=== PATIENT | female | born 1930 | race Caucasian/White ===

== ENCOUNTER 2016-12-22 02:38 | Emergency (ER) | payer MEDICARE, OTHER ==
[~2016-12-22] VITALS: Ht 167.6 cm; Wt 83.6 kg
[~2016-12-22 02:38] MED LIST: ACET65TA; BABY81CH; CEFT500T; INSULIN; LASI40TA; POTA10CA2; ROBITUSSIN; TENO50TA; VASO20TA; ZITH250T
[2016-12-22] MEDS ORDERED: XARE20TA PO (02:55)
[2016-12-22] MEDS ORDERED: GABA-282 PO (02:55)
[2016-12-22] MEDS ORDERED: NEXI40CA PO (02:55)
[2016-12-22] MEDS ORDERED: ATOR80TA59 PO (02:55)
[2016-12-22] MEDS ORDERED: SPIR50TA2 PO (02:55)
[2016-12-22 04:40] LABS: BASO % 0.4 % (0.0-1.0); EOS # 0.1 K/mm3 (0.0-0.50); EOS % 1.4 % (0.0-3.0); LARGE UNSTAINED CELL # 0.1 K/mm3 (0.0-0.4); LYMPH # 0.8 K/mm3 (1.5-4.5); LYMPH % 12.8 % (24.0-44.0); MEAN CORPUSCULAR HGB CONC 34.5 g/dl (32.0-36.5); MEAN CORPUSCULAR VOLUME 95.7 fl (80.0-96.0); MONO # 0.3 K/mm3 (0.0-0.8); NEUTROPHILS # 5.1 K/mm3 (1.8-7.7); NEUTROPHILS % 79.5 % (36.0-66.0); PLATELET COUNT, AUTOMATED 191 k/mm3 (150-450); WHITE BLOOD COUNT 6.4 K/mm3 (4.0-10.0)
[2016-12-22] MEDS ORDERED: NORCO, ANEXSIA 5/325MG TABLET (HYDROcodone/ACETAMINOPHEN) PO ONE (04:45)
[2016-12-22 05:03] LABS: ALBUMIN 3.4 GM/DL (3.2-5.2); ALBUMIN/GLOBULIN RATIO 1.21 (1.00-1.93); BILIRUBIN,DIRECT 0.2 MG/DL (0.0-0.2); BILIRUBIN,TOTAL 0.5 MG/DL (0.2-1.0); CALCIUM LEVEL 9.1 MG/DL (8.8-10.2); CREATININE FOR GFR 1.34 MG/DL (0.55-1.02); GLOMERULAR FILTRATION RATE 39.8 (>32); POTASSIUM SERUM 4.4 MEQ/L (3.5-5.1); TOTAL PROTEIN 6.2 GM/DL (6.4-8.2)
[2016-12-22] MEDS ORDERED: NS 500 ML IV ONE (05:15)
[2016-12-22 06:21] VITALS: BP 135/62
== END 2016-12-22 07:21 | disposition home or self-care (01) ==
LOC: M ED 02:38 → EDBD 02:38 → M ED 07:21
DX: E86.0 Dehydration (principal); E11.9 Type 2 diabetes mellitus without complications; I10 Essential (primary) hypertension; E78.5 Hyperlipidemia, unspecified; K21.9 Gastro-esophageal reflux disease without esophagitis; I89.0 Lymphedema, not elsewhere classified; Z79.4 Long term (current) use of insulin; Z79.899 Other long term (current) drug therapy; Z91.89 Other specified personal risk factors, not elsewhere classified

== ENCOUNTER 2018-05-01 16:23 | Inpatient (IN) | payer MEDICARE, OTHER ==
[~2018-05-01] VITALS: Ht 165.1 cm; Wt 77.4 kg
[~2018-05-01 16:23] MED LIST changes: +ATOR80TA59 PO; +GABA-843 PO; +NEXI40CA PO; +SPIR50TA4 PO; +XARE20TA PO
[2018-05-01] MEDS ORDERED: NS 500 ML IV ONE ×2 (17:15→18:30)
[2018-05-01 17:35] LABS: BASO % 0.5 % (0.0-1.0); EOS # 0.3 10^3/uL (0.0-0.50); EOS % 3.5 % (0.0-3.0); HEMATOCRIT 32.9 % (36.0-47.0); HEMOGLOBIN 10.5 g/dl (12.0-15.5); LYMPH # 1.3 10^3/uL (1.5-4.5); LYMPH % 17.8 % (24.0-44.0); MEAN CORPUSCULAR HEMOGLOBIN 28.8 pg (27.0-33.0); MEAN CORPUSCULAR HGB CONC 31.9 g/dl (32.0-36.5); MEAN CORPUSCULAR VOLUME 90.1 fl (80.0-96.0); MONO # 0.5 10^3/uL (0.0-0.8); MONO % 6.8 % (0.0-5.0); NEUTROPHILS # 5.2 10^3/uL (1.8-7.7); PLATELET COUNT, AUTOMATED 250 10^3/uL (150-450); RED BLOOD COUNT 3.65 10^6/uL (4.00-5.40); WHITE BLOOD COUNT 7.4 10^3/uL (4.0-10.0)
--- NOTE | 2018-05-01 17:41 | ECGEPIP ---
Stationary ECG Study [facility] - ED Test Date: 2018-05-01 Pat Name: DESIREE PEARSON Department: Room: - Gender: F Simulation Developer: JMyles : 1930 Requested By: SVETA AGARWAL Order Number: [id number] Reading MD: Aimee Otero Measurements Intervals Vance Rate: 59 P: 15 [place]: 202 QRS: 44 QRSD: 90 T: 4 QT: 420 QTc: 419 Interpretive Statements SINUS BRADYCARDIA NO PRIOR FOR COMPARISON Electronically Signed On 05-01-2018 17:40:37 EST by Aimee Otero
[2018-05-01 18:06] LABS: ALBUMIN 3.4 GM/DL (3.2-5.2); ALT/SGPT 24 U/L (12-78); BILIRUBIN,DIRECT 0.2 MG/DL (0.0-0.2); BILIRUBIN,TOTAL 0.5 MG/DL (0.2-1.0); BLOOD UREA NITROGEN 61 MG/DL (7-18); CARBON DIOXIDE LEVEL 24 MEQ/L (21-32); CHLORIDE LEVEL 104 MEQ/L (98-107); CPK CREATINE PHOSPHOKINASE 58 U/L (26-192); GLOMERULAR FILTRATION RATE 32.3 (>32); GLUCOSE, FASTING 95 MG/DL (70-100); MB/CK RELATIVE INDEX 3.45 (< OR =4); POTASSIUM SERUM 5.1 MEQ/L (3.5-5.1); SODIUM LEVEL 140 MEQ/L (136-145); TOTAL PROTEIN 6.5 GM/DL (6.4-8.2); TROPONIN I < 0.02 NG/ML (< 0.10)
[2018-05-01 19:02] LABS: FREE THYROXINE INDEX 4.1 % (1.3-4.8); MAGNESIUM LEVEL 2.2 MG/DL (1.8-2.4); T UPTAKE 37 % (30-39); THYROID STIMULATING HORMONE 0.136 uIU/ML (0.358-3.740); THYROXINE (T4) 11.2 UG/DL (4.5-12.0)
[2018-05-01] MEDS ORDERED: ONDANSETRON 4MG/2ML VIAL (J2405) IV PRN (19:30)
[2018-05-01] MEDS ORDERED: LEVO75TA4 PO (19:34)
[2018-05-01] MEDS ORDERED: ATEN50TA2 PO (19:34)
[2018-05-01] MEDS ORDERED: FURO40TA2 PO (19:34)
[2018-05-01] MEDS ORDERED: ENAL5TAB PO (19:40)
[2018-05-01] MEDS ORDERED: KLOR10TA76 PO (19:43)
--- NOTE | 2018-05-01 20:14 | REPVR ---
EXAM: CT Head Without Contrast EXAM DATE/TIME: 05/01/2018 7:49 PM CLINICAL HISTORY: 88 years old, female; Signs and symptoms; Altered mental status/memory loss; Additional info: Presyncope TECHNIQUE: Axial computed tomography images of the head/brain without contrast. All CT scans at this facility use at least one of these dose optimization techniques: automated exposure control; mA and/or kV adjustment per patient size (includes targeted exams where dose is matched to clinical indication); or iterative reconstruction. COMPARISON: No relevant prior studies available. FINDINGS: Brain: There is parenchymal volume loss. White matter changes are demonstrated in the subcortical, centrum semiovale and periventricular white matter consistent with small vessel white matter angiopathic gliosis. Chronic lacunar infarcts left periventricular white matter. Ventricles: The degree of ventricular dilatation is normal for age. No pathologic enlargement demonstrated. Bones/joints: Normal. No acute fracture. Sinuses: Mild inflammatory changes left maxillary sinus. Mastoid air cells: Normal as visualized. No mastoid effusion. Soft tissues: Normal. IMPRESSION: There is parenchymal volume loss. White matter changes are demonstrated in the subcortical, centrum semiovale and periventricular white matter consistent with small vessel white matter angiopathic gliosis. Electronically signed by: Maurizio Ji On 05/01/2018 20:14:02 PM
--- NOTE | 2018-05-01 20:23 | REP ---
Chest x-ray: Two views. History: Dizziness. Comparison chest x-ray: August 06, 2011. Findings: The lungs are well inflated and free of infiltrate. Pleural angles are sharp. Heart is mildly prominent. There is a hiatal hernia behind the heart. Pulmonary vasculature is not increased. EKG electrodes are seen. 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 Impression: Mildly prominent heart. Hiatal hernia. No acute disease. Electronically Signed by Adam Nj MD 05/01/2018 08:15 P
[2018-05-01 21:40] VITALS: BP 128/69
--- NOTE | 2018-05-01 22:34 | HPEPDOC ---
[facility] Medical History & Physical Date of Admission May 01, 2018 Other Provider Dictating/admitting Sharon Collado M.D. Attending Physician: LORENA DOUGLAS MD History and Physical CHIEF COMPLAINT: Presyncope HISTORY OF PRESENT ILLNESS: Patient is an 88-year-old woman. She has medical history significant for coronary artery disease, congestive heart failure, diabetes, hypertension, hypercholesterolemia and A. fib on Xarelto. According to her, she was in her usual state of health until about sometime in the afternoon when she was preparing had dinner she felt dizzy and had to grab onto furniture, sat down hoping the dizziness will chloe but 10 minutes later she still had the symptom of dizziness and subsequently activated EMS. She denied any loss of consciousness but she did refer, palpitations. No accompanying shortness of breath. She denies any fever, chills, chest pains. No recent sick contacts. She denied any prior visual changes or headaches. No change in her urinary or bowel habits. She was evaluated in the emergency room, non-orthostatic and giving 1 L IV fluid bolus. Her blood pressure consistently staying in the 120s systolic and she still complained of occasional dizziness. Hospitalist was called in for further evaluation and to have patient admitted. Patient did report some improvement. PAST MEDICAL HISTORY: Per HPI PAST SURGICAL HISTORY: 1. Right total hip replacement. SOCIAL HISTORY: Denies alcohol use. Denies illicit drugs, denies smoking. FAMILY HISTORY: Significant ischemic heart disease in the family. ALLERGIES: Please see below. REVIEW OF SYSTEMS: 12 point review of systems negative other than that described in the body of HPI. HOME MEDICATIONS: Please see below. PHYSICAL EXAMINATION: VITAL SIGNS: Temperature 97, pulse 18, respiratory rate 63, blood pressure 124/58, pulse oximetry 94% on room air. GENERAL APPEARANCE: Elderly woman, lying calmly in bed, not in any apparent distress. She is not pale, anicteric and afebrile HEENT: Atraumatic. Neck: Supple. LUNGS: Clear to auscultation bilaterally. CARDIOVASCULAR: S1 and 2 heard, no murmurs, rubs or gallops. ABDOMEN: Obese, soft, not tender, not distended. Bowel sounds normoactive. MUSCULOSKELETAL: Apparently within normal limits. EXTREMITIES: Chronic pedal edema (lymphedema), 2+ bilateral pedal pulses noted. NEUROLOGICAL: Awake, alert, oriented 3. PSYCHIATRIC: Normal affect LABORATORY DATA: See below. IMAGING: CT head without contrast There is parenchymal volume loss. White matter changes are demonstrated in the subcortical, centrum semiovale and periventricular white matter consistent with small vessel white matter angiopathic gliosis. Chest x-ray: No acute disease, mild cardiac enlargement. MICROBIOLOGY: Please see below. ASSESSMENT: Patient is an 88-year-old woman with medical history as enumerated above, came in complaining of presyncopal episode. Exam is negative for orthostasis EKG reads normal sinus rhythm. Patient reports improvement in her symptoms. DIAGNOSIS: Presyncope . PLAN: 1. I will admit patient to the PCU under care of Dr. Douglas 2. We'll order CT head without contrast. 3. We will order echocardiogram for tomorrow. 4. Will hold Lasix for now. Please reevaluate tomorrow and restart Lasix as indicated. 5. A. fib: Will resume atenolol but hold if heart rate is less than 60 beats per minute and I will continue patient on Xarelto 20 mg daily. 6. Diabetes. Patient's serum glucose readings 90. We'll continue with fingersticks before meals and at bedtime no insulin coverage at this time. However, soon as she resumes by mouth intake. Patient can start sliding scale. Continue with consistent carb with no added salt diet. 7. Patient reports being out of atenolol for about a week 8. GI prophylaxis. Pantoprazole 9. DVT prophylaxis. Continue Xarelto 10. Further management will be per patient's clinical course. Vital Signs Vital Signs Date Time Temp Pulse Resp B/P (MAP) Pulse Ox O2 Delivery O2 Flow Rate FiO2 05/01/18 21:40 98.7 66 16 128/69 (88) 95 Room Air Laboratory Data Labs 24H Laboratory Tests 2 05/01/18 17:25: Immature Granulocyte % (Auto) 0.4, White Blood Count 7.4, Red Blood Count 3.65L, Hemoglobin 10.5L, Hematocrit 32.9L, Mean Corpuscular Volume 90.1, Mean Corpuscular Hemoglobin 28.8, Mean Corpuscular Hemoglobin Concent 31.9L, Red Cell Distribution Width 15.9H, Platelet Count 250, Neutrophils (%) (Auto) 71.0H, Lymphocytes (%) (Auto) 17.8L, Monocytes (%) (Auto) 6.8H, Eosinophils (%) (Auto) 3.5H, Basophils (%) (Auto) 0.5, Neutrophils # (Auto) 5.2, Lymphocytes # (Auto) 1.3L, Monocytes # (Auto) 0.5, Eosinophils # (Auto) 0.3, Basophils # (Auto) 0.0, Nucleated Red Blood Cells % (auto) 0.0, Anion Gap 12, Glomerular Filtration Rate 32.3, Calcium Level 9.0, Magnesium Level 2.2, Aspartate Amino Transf (AST/SGOT) 14, Alanine Aminotransferase (ALT/SGPT) 24, Alkaline Phosphatase 110, Total Bilirubin 0.5, Direct Bilirubin 0.2, Total Creatine Kinase 58, Creatine Kinase MB 2.0, Creatine Kinase MB Relative Index 3.45, Troponin I < 0.02, Total Protein 6.5, Albumin 3.4, Albumin/Globulin Ratio 1.10, Thyroid Stimulating Hormone (TSH) 0.136L, Free Thyroxine Index 4.1, Thyroxine (T4) 11.2, Triiodothyronine (T3) Uptake 37 05/01/18 18:17: Lactic Acid Level 0.8 05/01/18 21:21: Urine Random Osmolality 315L 05/01/18 21:22: Urine Color YELLOW, Urine Appearance CLOUDYH, Urine pH 5.0, Urine Specific [place] 1.005, Urine Protein NEGATIVE, Urine Glucose (UA) NEGATIVE, Urine Ketones NEGATIVE, Urine Blood 1+H, Urine Nitrite NEGATIVE, Urine Bilirubin NEGATIVE, Urine Urobilinogen 0.2, Urine Leukocyte Esterase 1+H, Urine WBC (Auto) 14H, Urine RBC (Auto) 8H, Urine Hyaline Casts (Auto) 8, Urine Bacteria (Auto) 3+H, Urine Squamous Epithelial Cells 1, Urine Amorphous Sediment SMALLH, Urine Mucus (Auto) SMALL, Urine Sperm (Auto) CBC/BMP Laboratory Tests 05/01/18 17:25 Red Blood Count 3.65 L, Mean Corpuscular Volume 90.1, Mean Corpuscular Hemoglobin 28.8, Mean Corpuscular Hemoglobin Concent 31.9 L, Red Cell Distribution Width 15.9 H, Neutrophils (%) (Auto) 71.0 H, Lymphocytes (%) (Auto) 17.8 L, Monocytes (%) (Auto) 6.8 H, Eosinophils (%) (Auto) 3.5 H, Basophils (%) (Auto) 0.5, Neutrophils # (Auto) 5.2, Lymphocytes # (Auto) 1.3 L, Monocytes # (Auto) 0.5, Eosinophils # (Auto) 0.3, Basophils # (Auto) 0.0 Microbiology Microbiology 05/01/18 Blood Culture, Received Pending 05/01/18 Blood Culture, Received Pending 05/01/18 Respiratory Virus Panel (PCR) (RINA) - Final, Complete 05/01/18 Urine Culture, Received Pending Home Medications Scheduled Atenolol (Atenolol) 50 Mg Tab, 50 MG PO DAILY Atorvastatin Calcium (Atorvastatin Calcium) 80 Mg Tab, 80 MG PO 2XWK TAKES ON WEDNESDAY AND WEDNESDAY Enalapril Maleate (Enalapril Maleate) 5 Mg Tab, 5 MG PO DAILY Esomeprazole Magnesium Trihydr (Nexium) 40 Mg Cap, 40 MG PO DAILY Furosemide (Furosemide) 40 Mg Tab, 40 MG PO BID TAKES MORNING AND AFTERNOON Gabapentin (Gabapentin) 300 Mg Cap, 600 MG PO QHS Levothyroxine Sodium (Synthroid) 75 Mcg Tab, 75 MCG PO DAILY Potassium Chloride (Klor-Con M10) 10 Meq Tabcr, 20 MEQ PO DAILY Rivaroxaban (Xarelto) 20 Mg Tab, 20 MG PO QHS Spironolactone (Spironolactone) 50 Mg Tab, 50 MG PO DAILY Allergies Coded Allergies: Iodine (Verified Allergy, Unknown, BLISTER & BLISTERS, 07/20/12) Povidone (Verified Allergy, Unknown, BLISTERS & BLISTERS, 07/20/12) SHARON COLLADO MD May 01, 2018 22:34
[2018-05-01] MEDS: RIVAROXABAN 20 MG TAB (XARELTO) PO SCH (22:47)
[2018-05-01] MEDS: PANTOPRAZOLE 40MG INJ (PROTONIX) (C9113) IV SCH (22:47)
[2018-05-01] MEDS: GABAPENTIN 300 MG CAP PO SCH (22:47)
[2018-05-01 23:59] VITALS: BP 119/69
[2018-05-02 04:00] VITALS: BP 118/54
[2018-05-02 05:11] LABS: BASO % 0.6 % (0.0-1.0); EOS # 0.3 10^3/uL (0.0-0.50); EOS % 4.5 % (0.0-3.0); HEMATOCRIT 26.9 % (36.0-47.0); HEMOGLOBIN 8.6 g/dl (12.0-15.5); LYMPH % 30.7 % (24.0-44.0); MEAN CORPUSCULAR HEMOGLOBIN 28.7 pg (27.0-33.0); MEAN CORPUSCULAR VOLUME 89.7 fl (80.0-96.0); MONO # 0.6 10^3/uL (0.0-0.8); MONO % 8.8 % (0.0-5.0); NEUTROPHILS # 3.6 10^3/uL (1.8-7.7); NEUTROPHILS % 55.1 % (36.0-66.0); PLATELET COUNT, AUTOMATED 214 10^3/uL (150-450); WHITE BLOOD COUNT 6.5 10^3/uL (4.0-10.0)
[2018-05-02 05:31] LABS: CREATININE FOR GFR 1.56 MG/DL (0.55-1.30); GLOMERULAR FILTRATION RATE 33.3 (>32); POTASSIUM SERUM 4.2 MEQ/L (3.5-5.1)
[2018-05-02] MEDS: LEVOTHYROXINE 75MCG TABLET (0.075MG) PO SCH (05:37)
[2018-05-02 08:00] VITALS: BP 106/61
[2018-05-02] MEDS: ACETAMINOPHEN TAB 650MG DOSE (2X325MG) PO PRN ×2 (08:52→20:02)
[2018-05-02] MEDS: ATENOLOL 50 MG TAB PO SCH (08:53)
[2018-05-02] MEDS: SPIRONOLACTONE 50 MG TAB PO SCH (08:53)
[2018-05-02] MEDS ORDERED: SLF 3 ML SYR IV PRN (09:00)
[2018-05-02] MEDS ORDERED: FLUBLOK(EGG FREE)(QUAD)INFLUENZA VACC 0.5ML SYRINGE (90682)18YRS&OLDER IM ONE (09:00)
[2018-05-02] MEDS ORDERED: GLUCOSE 4 GM CHEW TABLET PO PRN (12:15)
[2018-05-02] MEDS ORDERED: DEXTROSE 50% 50 ML SYRINGE IV PRN (12:15)
[2018-05-02] MEDS ORDERED: GLUCAGON FOR INJ 1 MG VIAL (J1610) SC PRN (12:15)
[2018-05-02] MEDS: HumaLOG INSULIN (NovoLOG) PER UNIT SC SCH ×3 (12:34→21:00)
--- NOTE | 2018-05-02 12:38 | IPNPDOC ---
Date Seen The patient was seen on 05/02/18. Progress Note SUBJECTIVE: Patient was seen and examined at the bedside. Telemetry was unremarkable. She denies any sob, chest pain, pressure, tightness, dizziness, lightheadedness, nausea, vomiting, abd pain, diaphoresis, PND, orthopnea, headache, blurred vision. Telemetry was sinus with no arrhythmias. No other issues per RN except insulin sliding scale now with coverage. Tmax 100.6, awaiting urine cx . on ceftriaxone day #1. OBJECTIVE: PHYSICAL EXAMINATION: VITAL SIGNS: PLS SEE BELOW, REVIEWED GENERAL APPEARANCE: Elderly woman, lying calmly in bed, not in any apparent distress. She is not pale, anicteric and afebrile HEENT: Atraumatic. Neck: Supple. LUNGS: Clear to auscultation bilaterally. CARDIOVASCULAR: S1 and 2 heard, no murmurs, rubs or gallops. ABDOMEN: Obese, soft, not tender, not distended. Bowel sounds normoactive. MUSCULOSKELETAL: Apparently within normal limits. EXTREMITIES: Chronic pedal edema (lymphedema), 2+ bilateral pedal pulses noted. NEUROLOGICAL: Awake, alert, oriented 3. PSYCHIATRIC: Normal affect LABORATORY DATA: See below. IMAGING: CT head without contrast There is parenchymal volume loss. White matter changes are demonstrated in the subcortical, centrum semiovale and periventricular white matter consistent with small vessel white matter angiopathic gliosis. Chest x-ray: No acute disease, mild cardiac enlargement. MICROBIOLOGY: Please see below. ASSESSMENT AND PLAN: Patient is an 88-year-old woman. She has medical history significant for coronary artery disease, congestive heart failure, diabetes, hypertension, hypercholesterolemia and A. fib on Xarelto. According to her, she was in her usual state of health until about sometime in the afternoon when she was preparing had dinner she felt dizzy and had to grab onto furniture, sat down hoping the dizziness will chloe but 10 minutes later she still had the symptom of dizziness and subsequently activated EMS. She denied any loss of consciousness but she did refer, palpitations. No accompanying shortness of breath. She denies any fever, chills, chest pains. No recent sick contacts. She denied any prior visual changes or headaches. No change in her urinary or bowel habits. She was evaluated in the emergency room, non-orthostatic and giving 1 L IV fluid bolus. Her blood pressure consistently staying in the 120s systolic and she still complained of occasional dizziness. Hospitalist was called in for further evaluation and to have patient admitted. Patient did report some improvement. Presyncope: telemetry monitoring was unremarkable overnight. check orthostatics. echo pending. r/o acute infectious process. awaiting urine cx result. UTI: fever 100.6 . ceftriaxone 1gram iv q24hrs 05/02/18. A. fib: resumed atenolol but hold if heart rate is less than 60 beats per minute , on Xarelto 20 mg daily. Diabetes. We'll continue with fingersticks before meals and at bedtime with insulin coverage at this time. Patient can start sliding scale. Continue with consistent carb with no added salt diet. Hypertension: controlled. CDK3: at baseline creatinine. avoid nephrotoxins, renally dose meds. History of MRSA postop hip replacement infection: contact isolation DVT prophylaxis. Continue Xarelto disposition: awaiting echo and PT clearance. stable for medsurg transfer with tele. Further management will be per patient's clinical course. VS, I&O, 24H, [facility] Vital Signs/I&O Vital Signs Date Time Temp Pulse Resp B/P (MAP) Pulse Ox O2 Delivery O2 Flow Rate FiO2 05/02/18 09:45 99.9 05/02/18 08:53 70 110/60 05/02/18 08:00 20 92 Room Air I&O- Last 24 Hours up to 6 AM 05/02/18 05:59 Intake Total 1250 ml Output Total 0 ml Balance 1250 ml Laboratory Data 24H LABS Laboratory Tests 2 05/01/18 17:25: Immature Granulocyte % (Auto) 0.4, White Blood Count 7.4, Red Blood Count 3.65L, Hemoglobin 10.5L, Hematocrit 32.9L, Mean Corpuscular Volume 90.1, Mean Corpuscular Hemoglobin 28.8, Mean Corpuscular Hemoglobin Concent 31.9L, Red Cell Distribution Width 15.9H, Platelet Count 250, Neutrophils (%) (Auto) 71.0H, Lymphocytes (%) (Auto) 17.8L, Monocytes (%) (Auto) 6.8H, Eosinophils (%) (Auto) 3.5H, Basophils (%) (Auto) 0.5, Neutrophils # (Auto) 5.2, Lymphocytes # (Auto) 1.3L, Monocytes # (Auto) 0.5, Eosinophils # (Auto) 0.3, Basophils # (Auto) 0.0, Nucleated Red Blood Cells % (auto) 0.0, Anion Gap 12, Glomerular Filtration Rate 32.3, Calcium Level 9.0, Magnesium Level 2.2, Aspartate Amino Transf (AST/SGOT) 14, Alanine Aminotransferase (ALT/SGPT) 24, Alkaline Phosphatase 110, Total Bilirubin 0.5, Direct Bilirubin 0.2, Total Creatine Kinase 58, Creatine Kinase MB 2.0, Creatine Kinase MB Relative Index 3.45, Troponin I < 0.02, Total Protein 6.5, Albumin 3.4, Albumin/Globulin Ratio 1.10, Thyroid Stimulating Hormone (TSH) 0.136L, Free Thyroxine Index 4.1, Thyroxine (T4) 11.2, Triiodothyronine (T3) Uptake 37 05/01/18 18:17: Lactic Acid Level 0.8 05/01/18 21:21: Urine Random Osmolality 315L 05/01/18 21:22: Urine Color YELLOW, Urine Appearance CLOUDYH, Urine pH 5.0, Urine Specific [place] 1.005, Urine Protein NEGATIVE, Urine Glucose (UA) NEGATIVE, Urine Ketones NEGATIVE, Urine Blood 1+H, Urine Nitrite NEGATIVE, Urine Bilirubin NE GATIVE, Urine Urobilinogen 0.2, Urine Leukocyte Esterase 1+H, Urine WBC (Auto) 14H, Urine RBC (Auto) 8H, Urine Hyaline Casts (Auto) 8, Urine Bacteria (Auto) 3+H, Urine Squamous Epithelial Cells 1, Urine Amorphous Sediment SMALLH, Urine Mucus (Auto) SMALL, Urine Sperm (Auto) 05/02/18 04:31: Immature Granulocyte % (Auto) 0.3, White Blood Count 6.5, Red Blood Count 3.00L, Hemoglobin 8.6L, Hematocrit 26.9L, Mean Corpuscular Volume 89.7, Mean Corpuscular Hemoglobin 28.7, Mean Corpuscular Hemoglobin Concent 32.0, Red Cell Distribution Width 16.2H, Platelet Count 214, Neutrophils (%) (Auto) 55.1, Lymphocytes (%) (Auto) 30.7, Monocytes (%) (Auto) 8.8H, Eosinophils (%) (Auto) 4.5H, Basophils (%) (Auto) 0.6, Neutrophils # (Auto) 3.6, Lymphocytes # (Auto) 2.0, Monocytes # (Auto) 0.6, Eosinophils # (Auto) 0.3, Basophils # (Auto) 0.0, Nucleated Red Blood Cells % (auto) 0.0, Anion Gap 9, Glomerular Filtration Rate 33.3, Osmolality 327H, Blood Urea Nitrogen 61H, Creatinine 1.56H, Sodium Level 140, Potassium Level 4.2, Chloride Level 107, Carbon Dioxide Level 24, Calcium Level 9.0 05/02/18 11:57: Bedside Glucose (Misc Panel) 138H CBC/BMP Laboratory Tests 05/01/18 17:25 Red Blood Count 3.65 L, Mean Corpuscular Volume 90.1, Mean Corpuscular Hemoglobin 28.8, Mean Corpuscular Hemoglobin Concent 31.9 L, Red Cell Distribution Width 15.9 H, Neutrophils (%) (Auto) 71.0 H, Lymphocytes (%) (Auto) 17.8 L, Monocytes (%) (Auto) 6.8 H, Eosinophils (%) (Auto) 3.5 H, Basophils (%) (Auto) 0.5, Neutrophils # (Auto) 5.2, Lymphocytes # (Auto) 1.3 L, Monocytes # (Auto) 0.5, Eosinophils # (Auto) 0.3, Basophils # (Auto) 0.0 05/02/18 04:31 Red Blood Count 3.00 L, Mean Corpuscular Volume 89.7, Mean Corpuscular Hemoglobin 28.7, Mean Corpuscular Hemoglobin Concent 32.0, Red Cell Distribution Width 16.2 H, Neutrophils (%) (Auto) 55.1, Lymphocytes (%) (Auto) 30.7, Monocytes (%) (Auto) 8.8 H, Eosinophils (%) (Auto) 4.5 H, Basophils (%) (Auto) 0.6, Neutrophils # (Auto) 3.6, Lymphocytes # (Auto) 2.0, Monocytes # (Auto) 0.6, Eosinophils # (Auto) 0.3, Basophils # (Auto) 0.0, Calcium Level 9.0 Microbiology Microbiology 05/01/18 Blood Culture, Received Pending 05/01/18 Blood Culture, Received Pending 05/01/18 Respiratory Virus Panel (PCR) ([facility]INA) - Final, Complete 05/01/18 Urine Culture, Received Pending LORENA WINSLOW MD May 02, 2018 12:32
[2018-05-02] MEDS: MECLIZINE 12.5 MG TAB PO SCH ×3 (13:39→23:42)
[2018-05-02] MEDS: LACTOBACILLUS ACIDOPHILUS CAP (BACID) PO SCH ×2 (13:39→17:08)
[2018-05-02] MEDS: cefTRIAXone SOD 1 GM in D5W MINI-BAG PLUS 50 ML IV SCH (13:39)
[2018-05-02] MEDS: SLF 3 ML SYR IV SCH ×2 (13:44→22:00)
[2018-05-02 16:00] VITALS: BP 117/58
[2018-05-02] MEDS: ENALAPRIL MALEATE 5 MG TAB PO SCH (16:01)
[2018-05-02 18:00] VITALS: BP_SYST 113; BP_SYST 115; BP_SYST 116; BP_DIAS 53; BP_DIAS 55; BP_DIAS 57
--- NOTE | 2018-05-02 18:26 | ECHO ---
DATE OF PROCEDURE: 05/02/2018 Date of : 1930 Age: 88 Gender: Female Height: 65 inches Weight: 178 pounds Body surface area: 1.88 meters squared Inpatient: U, room 3226 REFERRING PHYSICIAN: Ester Guallpa INDICATION: Syncope. MEASUREMENTS: 2D measurements: RV: 4.5 cm LV: 4.1 cm Septum: 1.0 cm Posterior wall: 1.0 cm Aortic root: 3.2 cm LA: 4.2 cm LVEF: 75%. Doppler measurements: AV: 1.81 meters per second LVOT: 0.87 meters per second LVOT diameter: 1.7 cm MV-E: 133, A: 56, EA ratio: 2.3 Early mitral deceleration time: 113 milliseconds E prime: 7.4, A prime: 5, E/E prime ratio: 18 PV: 0.85 meters per second Pulmonary artery acceleration time: 102 milliseconds RVSP: 37 mmHg IVC: 2.2 cm COMMENTS: Normal sinus rhythm without intraventricular conduction disturbance. M-mode and two-dimensional echocardiography was performed with pulsed, continuous wave, color flow, and tissue Doppler studies. Normal left ventricular size, wall thickness and hyperkinetic wall motion. Mildly dilated left atrium with Doppler evidence of impairment of LV diastolic function and at least mildly elevated mean left atrial pressure. Mildly dilated right heart chambers with normal right ventricular free wall motion and Doppler evidence of at least mild pulmonary hypertension. Normal IVC size and collapse against an elevated central venous pressure. Moderate aortic valvular sclerosis without stenosis or insufficiency. Normal aortic root size. Moderately severe mitral annular calcification without inflow tract obstruction and only mild insufficiency. Normal appearing tricuspid valve with mild to moderate insufficiency. No apparent intracardiac mass or pericardial effusion.
[2018-05-02] MEDS: PANTOPRAZOLE 40MG INJ (PROTONIX) (C9113) IV SCH (21:00)
[2018-05-02] MEDS: GABAPENTIN 300 MG CAP PO SCH (21:00)
[2018-05-02] MEDS: RIVAROXABAN 20 MG TAB (XARELTO) PO SCH (21:00)
[2018-05-02 22:00] VITALS: BP 132/64
[2018-05-03 05:14] VITALS: BP 115/56
[2018-05-03] MEDS: MECLIZINE 12.5 MG TAB PO SCH ×3 (06:00→17:39)
[2018-05-03] MEDS: SLF 3 ML SYR IV SCH ×3 (06:00→21:48)
[2018-05-03] MEDS: LEVOTHYROXINE 75MCG TABLET (0.075MG) PO SCH (06:00)
[2018-05-03] MEDS: HumaLOG INSULIN (NovoLOG) PER UNIT SC SCH ×4 (07:32→21:00)
[2018-05-03] MEDS: LACTOBACILLUS ACIDOPHILUS CAP (BACID) PO SCH ×3 (08:48→17:39)
[2018-05-03] MEDS: ENALAPRIL MALEATE 5 MG TAB PO SCH (08:48)
[2018-05-03] MEDS: SPIRONOLACTONE 50 MG TAB PO SCH (08:48)
[2018-05-03] MEDS: ATENOLOL 50 MG TAB PO SCH (08:50)
[2018-05-03] MEDS: cefTRIAXone SOD 1 GM in D5W MINI-BAG PLUS 50 ML IV SCH (13:02)
[2018-05-03 14:00] VITALS: BP 124/62
[2018-05-03] MEDS: RIVAROXABAN 20 MG TAB (XARELTO) PO SCH (21:46)
[2018-05-03] MEDS: GABAPENTIN 300 MG CAP PO SCH (21:46)
[2018-05-03] MEDS: PANTOPRAZOLE 40MG INJ (PROTONIX) (C9113) IV SCH (21:48)
[2018-05-03 22:00] VITALS: BP 128/66
--- NOTE | 2018-05-03 23:08 | IPNPDOC ---
Text Note Date of Service The patient was seen on 05/03/18. NOTE SUBJECTIVE: Feels better this am. Dizziness and light headedness is less. Able to walk with a walker with stand by assist today. No fevers or chills. no dysuria , no chest pain or cough or phlegm OBJECTIVE: PHYSICAL EXAMINATION: VITAL SIGNS: PLS SEE BELOW, REVIEWED GENERAL APPEARANCE: Elderly woman, lying calmly in bed, not in any apparent distress. She is not pale, anicteric and afebrile HEENT: Atraumatic. Neck: Supple. LUNGS: Clear to auscultation bilaterally. CARDIOVASCULAR: S1 and 2 heard, no murmurs, rubs or gallops. ABDOMEN: Obese, soft, not tender, not distended. Bowel sounds normoactive. MUSCULOSKELETAL: Apparently within normal limits. EXTREMITIES: Chronic pedal edema (lymphedema), 2+ bilateral pedal pulses noted. NEUROLOGICAL: Awake, alert, oriented 3. PSYCHIATRIC: Normal affect LABORATORY DATA And Radiology: Reviewed ASSESSMENT AND PLAN: Patient is an 88-year-old woman. She has medical history significant for coronary artery disease, congestive heart failure, diabetes, hypertension, hypercholesterolemia and A. fib on Xarelto. According to her, she was in her usual state of health until about sometime in the afternoon when she was preparing her dinner when she felt dizzy and had to grab onto furniture, sat down hoping the dizziness will chloe but 10 minutes later she still had the symptom of dizziness and subsequently activated EMS. She denied any loss of consciousness but she did refer, palpitations. No accompanying shortness of breath. She denies any fever, chills, chest pains. No recent sick contacts. She denied any prior visual changes or headaches. No change in her urinary or bowel habits. She was evaluated in the emergency room, non-orthostatic and giving 1 L IV fluid bolus. Her blood pressure consistently staying in the 120s systolic and she still complained of occasional dizziness. Hospitalist was called in for further evaluation and to have patient admitted. Patient did report some improvement. Dizziness, lightheadedness with posture change, though no orthostatic changes noted probably due to age with some degree of autonomic neuropathy in the presence of too well controlled blood pressures and mild intravascular volume depletion due to diuretics. I expect her symptoms will be better if allowing higher blood pressures and less diuretics. also will decrease dose of gabapentin. No clinical signs of vestibular dysfunction or BPPV noted so will stop meclizine and monitor her symptoms. Presyncope probably due to too well controlled blood pressures for her age with mild intra vascular volume depletion from diuretics. Echo diastolic dysfunction only, normal EF no valvular abnormality telemetry monitoring was unremarkable orthostatics are negative after IVF in ED. Rule out UTi awaiting culture Bacteruria rule out UTI: awaiting cultures. ceftriaxone 1gram iv q24hrs 05/02/18. Atrial fibrillation rate controlled Resumed atenolol but hold if heart rate is less than 60 beats per minute , on Xarelto 20 mg daily. Diabetes We'll continue with fingersticks before meals and at bedtime with insulin coverage at this time. Patient can start sliding scale. Continue with consistent carb with no added salt diet. Hypertension too well controlled for an elderly lady with occational readings in 100s and 110s will stop enalapril and lasix. continue spironolactone and atenolol will restart lasix at reduced dosage on discharge. CKD stage 3 at baseline creatinine. avoid nephrotoxins, renally dose meds. History of MRSA postop hip replacement infection contact isolation DVT prophylaxis. Continue Xarelto disposition: awaiting PT clearance. VS,Fishbone, I+O VS, Fishbone, I+O Vital Signs Date Time Temp Pulse Resp B/P (MAP) Pulse Ox O2 Delivery O2 Flow Rate FiO2 05/03/18 22:00 97.9 62 17 128/66 (86) 98 Room Air I&O- Last 24 Hours up to 6 AM 05/03/18 06:00 Intake Total 2270 ml Output Total 1375 ml Balance 895 ml CITLALLI UMANZOR MD May 03, 2018 23:07
[2018-05-04 06:00] VITALS: BP 131/59
[2018-05-04] MEDS: SLF 3 ML SYR IV SCH (06:16)
[2018-05-04] MEDS: LEVOTHYROXINE 75MCG TABLET (0.075MG) PO SCH (06:16)
[2018-05-04 06:17] LABS: BASO % 0.8 % (0.0-1.0); EOS # 0.4 10^3/uL (0.0-0.50); EOS % 7.5 % (0.0-3.0); HEMATOCRIT 27.3 % (36.0-47.0); HEMOGLOBIN 8.7 g/dl (12.0-15.5); LYMPH # 1.6 10^3/uL (1.5-4.5); LYMPH % 32.4 % (24.0-44.0); MEAN CORPUSCULAR HEMOGLOBIN 28.7 pg (27.0-33.0); MEAN CORPUSCULAR HGB CONC 31.9 g/dl (32.0-36.5); MEAN CORPUSCULAR VOLUME 90.1 fl (80.0-96.0); MONO # 0.5 10^3/uL (0.0-0.8); MONO % 10.3 % (0.0-5.0); NEUTROPHILS # 2.5 10^3/uL (1.8-7.7); NEUTROPHILS % 48.6 % (36.0-66.0); PLATELET COUNT, AUTOMATED 203 10^3/uL (150-450); RED BLOOD COUNT 3.03 10^6/uL (4.00-5.40); WHITE BLOOD COUNT 5.1 10^3/uL (4.0-10.0)
[2018-05-04] MEDS: HumaLOG INSULIN (NovoLOG) PER UNIT SC SCH ×2 (07:30→12:28)
[2018-05-04 08:24] LABS: CALCIUM LEVEL 8.6 MG/DL (8.8-10.2); CREATININE FOR GFR 1.4 MG/DL (0.55-1.30); GLOMERULAR FILTRATION RATE 37.7 (>32); POTASSIUM SERUM 4.5 MEQ/L (3.5-5.1)
[2018-05-04 09:02] VITALS: BP 143/66
[2018-05-04] MEDS: SPIRONOLACTONE 50 MG TAB PO SCH (09:02)
[2018-05-04] MEDS: LACTOBACILLUS ACIDOPHILUS CAP (BACID) PO SCH ×2 (09:02→12:27)
[2018-05-04] MEDS: ATENOLOL 50 MG TAB PO SCH (09:02)
[2018-05-04 09:17] LABS: PERCENT SATURATION 9.2 % (13.2-45.0)
--- NOTE | 2018-05-04 10:58 | IPNPDOC ---
Text Note Date of Service The patient was seen on 05/04/18. NOTE SUBJECTIVE: Feels better this am. Dizziness and light headedness has resolved. Able to walk with a walker with assistance but very slow and unsteady gait. No fevers or chills. no dysuria , no chest pain or cough or phlegm OBJECTIVE: PHYSICAL EXAMINATION: VITAL SIGNS: PLS SEE BELOW, REVIEWED GENERAL APPEARANCE: Elderly woman, lying calmly in bed, not in any apparent distress. She is not pale, anicteric and afebrile HEENT: Atraumatic. Neck: Supple. LUNGS: Clear to auscultation bilaterally. CARDIOVASCULAR: S1 and 2 heard, no murmurs, rubs or gallops. ABDOMEN: Obese, soft, not tender, not distended. Bowel sounds normoactive. MUSCULOSKELETAL: Apparently within normal limits. EXTREMITIES: Chronic pedal edema (lymphedema), 2+ bilateral pedal pulses noted. NEUROLOGICAL: Awake, alert, oriented 3. PSYCHIATRIC: Normal affect LABORATORY DATA And Radiology: Reviewed ASSESSMENT AND PLAN: Patient is an 88-year-old woman. She has medical history significant for coronary artery disease, congestive heart failure, diabetes, hypertension, hypercholesterolemia and A. fib on Xarelto. According to her, she was in her usual state of health until about sometime in the afternoon when she was preparing her dinner when she felt dizzy and had to grab onto furniture, sat down hoping the dizziness will chloe but 10 minutes later she still had the symptom of dizziness and subsequently activated EMS. She denied any loss of consciousness but she did refer, palpitations. No accompanying shortness of breath. She denies any fever, chills, chest pains. No recent sick contacts. She denied any prior visual changes or headaches. No change in her urinary or bowel habits. She was evaluated in the emergency room, non-orthostatic and giving 1 L IV fluid bolus. Her blood pressure consistently staying in the 120s systolic and she still complained of occasional dizziness. Hospitalist was called in for further evaluation and to have patient admitted. Patient did report some improve ment. Dizziness, lightheadedness with posture change, though no orthostatic changes noted probably due to age with some degree of autonomic neuropathy in the presence of too well controlled blood pressures and mild intravascular volume depletion due to diuretics. I expect her symptoms will be better if allowing higher blood pressures and less diuretics. also will decrease dose of gabapentin. No clinical signs of vestibular dysfunction or BPPV noted so will stop meclizine and monitor her symptoms. Presyncope probably due to too well controlled blood pressures for her age with mild intra vascular volume depletion from diuretics. Echo diastolic dysfunction only, normal EF no valvular abnormality telemetry monitoring was unremarkable orthostatics are negative after IVF in ED. UTI urine culture e coli. ceftriaxone changed to cefdinir. Atrial fibrillation rate controlled Resumed atenolol but hold if heart rate is less than 60 beats per minute , on Xarelto 20 mg daily. Diabetes We'll continue with fingersticks before meals and at bedtime with insulin coverage at this time. Patient can start sliding scale. Continue with consistent carb with no added salt diet. Hypertension too well controlled for an elderly lady with occational readings in 100s and 110s will stop enalapril and lasix. continue spironolactone and atenolol will restart lasix at reduced dosage on discharge. CKD stage 3 at baseline creatinine. avoid nephrotoxins, renally dose meds. History of MRSA postop hip replacement infection contact isolation DVT prophylaxis. Continue Xarelto disposition: awaiting PT clearance. VS,Fishbone, I+O VS, Fishbone, I+O Laboratory Tests 05/04/18 05:51 Red Blood Count 3.03 L, Mean Corpuscular Volume 90.1, Mean Corpuscular Hemoglobin 28.7, Mean Corpuscular Hemoglobin Concent 31.9 L, Red Cell Distribution Width 16.0 H, Neutrophils (%) (Auto) 48.6, Lymphocytes (%) (Auto) 32.4, Monocytes (%) (Auto) 10.3 H, Eosinophils (%) (Auto) 7.5 H, Basophils (%) (Auto) 0.8, Neutrophils # (Auto) 2.5, Lymphocytes # (Auto) 1.6, Monocytes # (Auto) 0.5, Eosinophils # (Auto) 0.4, Basophils # (Auto) 0.0, Calcium Level 8.6 L Vital Signs Date Time Temp Pulse Resp B/P (MAP) Pulse Ox O2 Delivery O2 Flow Rate FiO2 05/04/18 09:02 70 143/66 05/04/18 06:00 98.1 17 94 Room Air I&O- Last 24 Hours up to 6 AM 05/04/18 06:00 Intake Total 980 ml Output Total 675 ml Balance 305 ml CITLALLI UMANZOR MD May 04, 2018 10:58
--- NOTE | 2018-05-04 12:35 | DS.PDOC ---
Discharge Summary General Date of Admission May 03, 2018 at 22:40 Date of Discharge 05/04/18 Attending Physician: CITLALLI UMANZOR MD Discharge Summary PROCEDURES PERFORMED DURING STAY: [None]. DISCHARGE DIAGNOSES: Presyncope due to too well controlled blood pressure, mild dehydration from d iuretics UTI Atrial fibrillation hypertension CKD 3 History of Diabetes now not on any meds. hyperlipidemia CAD Diastolic CHF Mild pulmonary hypertension COMPLICATIONS/CHIEF COMPLAINT: Near Syncope. HISTORY OF PRESENT ILLNESS: See History and physical HOSPITAL COURSE: Patient is an 88-year-old woman. She has medical history significant for coronary artery disease, congestive heart failure, diabetes, hypertension, hypercholesterolemia and A. fib on Xarelto. According to her, she was in her usual state of health until about sometime in the afternoon when she was preparing her dinner when she felt dizzy and had to grab onto furniture, sat down hoping the dizziness will chloe but 10 minutes later she still had the symptom of dizziness and subsequently activated EMS. She denied any loss of consciousness but she did refer, palpitations. No accompanying shortness of breath. She denies any fever, chills, chest pains. No recent sick contacts. She denied any prior visual changes or headaches. No change in her urinary or bowel habits. She was evaluated in the emergency room, non-orthostatic and giving 1 L IV fluid bolus. Her blood pressure consistently staying in the 120s systolic and she still complained of occasional dizziness. Hospitalist was called in for further evaluation and to have patient admitted. Patient did report some improvement. Dizziness, lightheadedness with posture change, though no orthostatic changes noted probably due to age with some degree of autonomic neuropathy in the presence of too well controlled blood pressures and mild intravascular volume depletion due to diuretics. I expect her symptoms will be better if allowing higher blood pressures and less diuretics. also will decrease dose of gabapentin. No clinical signs of vestibular dysfunction or BPPV noted so will stop meclizine and monitor her symptoms. Presyncope probably due to too well controlled blood pressures for her age with mild intra vascular volume depletion from diuretics. Echo diastolic dysfunction only, normal EF no valvular abnormality telemetry monitoring was unremarkable orthostatics are negative after IVF in ED. UTI urine culture e coli. ceftriaxone changed to cefdinir. Atrial fibrillation rate controlled Resumed atenolol but hold if heart rate is less than 60 beats per minute , on Xarelto 20 mg daily. Diastolic CHF will restart reduced dose lasix and continue spironolactone. Diabetes We'll continue with fingersticks before meals and at bedtime with insulin coverage at this time. Patient can start sliding scale. Continue with consistent carb with no added salt diet. Hypertension too well controlled for an elderly lady with occasional readings in 100s and 110s will stop enalapril and lasix. continue spironolactone and atenolol will restart lasix at reduced dosage on discharge. CKD stage 3 at baseline creatinine. avoid nephrotoxins, renally dose meds. History of MRSA postop hip replacement infection DISCHARGE MEDICATIONS: Please see below. ALLERGIES: Please see below. PHYSICAL EXAMINATION ON DISCHARGE: VITAL SIGNS: Please see below. GENERAL APPEARANCE: Elderly woman, lying calmly in bed, not in any apparent distress. She is not pale, anicteric and afebrile HEENT: Atraumatic. Neck: Supple. LUNGS: Clear to auscultation bilaterally. CARDIOVASCULAR: S1 and 2 heard, no murmurs, rubs or gallops. ABDOMEN: Obese, soft, not tender, not distended. Bowel sounds normoactive. MUSCULOSKELETAL: Apparently within normal limits. EXTREMITIES: Chronic pedal edema (lymphedema), 2+ bilateral pedal pulses noted. NEUROLOGICAL: Awake, alert, oriented 3. PSYCHIATRIC: Normal affect LABORATORY DATA: Please see below. ACTIVITY: As tolerated DIET: As tolerated DISCHARGE PLAN: To acute rehab DISPOSITION: ARU DISCHARGE INSTRUCTIONS: Follow up with PMD 2 weeks after discharge DISCHARGE CONDITION: Stable TIME SPENT ON DISCHARGE: Greater than 30 minutes. Vital Signs/I&Os Vital Signs Date Time Temp Pulse Resp B/P (MAP) Pulse Ox O2 Delivery O2 Flow Rate FiO2 05/04/18 09:02 70 143/66 05/04/18 06:00 98.1 17 94 Room Air I&O- Last 24 Hours up to 6 AM 05/04/18 05:59 Intake Total 800 ml Output Total 475 ml Balance 325 ml Laboratory Data Labs 24H Laboratory Tests 2 05/03/18 16:56: Bedside Glucose (Misc Panel) 122H 05/03/18 19:44: Bedside Glucose (Misc Panel) 117H 05/04/18 05:51: Immature Granulocyte % (Auto) 0.4, White Blood Count 5.1, Red Blood Count 3.03L, Hemoglobin 8.7L, Hematocrit 27.3L, Mean Corpuscular Volume 90.1, Mean Corpuscular Hemoglobin 28.7, Mean Corpuscular Hemoglobin Concent 31.9L, Red Cell Distribution Width 16.0H, Platelet Count 203, Neutrophils (%) (Auto) 48.6, Lymphocytes (%) (Auto) 32.4, Monocytes (%) (Auto) 10.3H, Eosinophils (%) (Auto) 7.5H, Basophils (%) (Auto) 0.8, Neutrophils # (Auto) 2.5, Lymphocytes # (Auto) 1.6, Monocytes # (Auto) 0.5, Eosinophils # (Auto) 0.4, Basophils # (Auto) 0.0, Nucleated Red Blood Cells % (auto) 0.0, Anion Gap 11, Glomerular Filtration Rate 37.7, Blood Urea Nitrogen 63H, Creatinine 1.40H, Sodium Level 142, Potassium Level 4.5, Chloride Level 107, Carbon Dioxide Level 24, Calcium Level 8.6L, Iron Level 24L, Total Iron Binding Capacity 260, Transferrin % Saturation 9.2L, Fe rritin 14, Vitamin B12 Level 426 CBC/BMP Laboratory Tests 05/04/18 05:51 Red Blood Count 3.03 L, Mean Corpuscular Volume 90.1, Mean Corpuscular Hemoglobin 28.7, Mean Corpuscular Hemoglobin Concent 31.9 L, Red Cell Distribution Width 16.0 H, Neutrophils (%) (Auto) 48.6, Lymphocytes (%) (Auto) 32.4, Monocytes (%) (Auto) 10.3 H, Eosinophils (%) (Auto) 7.5 H, Basophils (%) (Auto) 0.8, Neutrophils # (Auto) 2.5, Lymphocytes # (Auto) 1.6, Monocytes # (Auto) 0.5, Eosinophils # (Auto) 0.4, Basophils # (Auto) 0.0, Calcium Level 8.6 L FSBS Laboratory Tests Test 05/03/18 16:56 05/03/18 19:44 Range/Units Bedside Glucose (Misc Panel) 122 117 83-110 MG/DL Microbiology Microbiology 05/01/18 Blood Culture - Preliminary, Resulted No Growth after 48 hours. All Specime... 05/01/18 Blood Culture - Preliminary, Resulted No Growth after 48 hours. All Specime... 1/13/19 Respiratory Virus Panel (PCR) ([facility]) - Final, Complete 05/01/18 Urine Culture - Final, Complete Escherichia Coli Discharge Medications Scheduled Atenolol (Atenolol) 50 Mg Tab, 50 MG PO DAILY, (Reported) Atorvastatin Calcium (Atorvastatin Calcium) 80 Mg Tab, 80 MG PO 2XWK, (Reported) TAKES ON WEDNESDAY AND WEDNESDAY Enalapril Maleate (Enalapril Maleate) 5 Mg Tab, 5 MG PO DAILY, (Reported) Esomeprazole Magnesium Trihydr (Nexium) 40 Mg Cap, 40 MG PO DAILY, (Reported) Furosemide (Furosemide) 40 Mg Tab, 40 MG PO BID, (Reported) TAKES MORNING AND AFTERNOON Gabapentin (Gabapentin) 300 Mg Cap, 600 MG PO QHS, (Reported) Levothyroxine Sodium (Synthroid) 75 Mcg Tab, 75 MCG PO DAILY, (Reported) Potassium Chloride (Klor-Con M10) 10 Meq Tabcr, 20 MEQ PO DAILY, (Reported) Rivaroxaban (Xarelto) 20 Mg Tab, 20 MG PO QHS, (Reported) Spironolactone (Spironolactone) 50 Mg Tab, 50 MG PO DAILY, (Reported) Allergies Coded Allergies: Iodine (Verified Allergy, Unknown, BLISTER & BLISTERS, 07/20/12) Povidone (Verified Allergy, Unknown, BLISTERS & BLISTERS, 07/20/12) CITLALLI UMANZOR MD May 04, 2018 12:35
[2018-05-04] MEDS ORDERED: FURO40TA2 PO (12:39)
[2018-05-04] MEDS ORDERED: RISATAB3 PO (12:39)
[2018-05-04] MEDS ORDERED: CEFD300CAP PO (12:39)
[2018-05-04] MEDS ORDERED: GABA-843 PO (12:39)
[2018-05-04 17:49] LABS: FOLATE 11.5 NG/ML (>5.4)
[2018-05-04] MEDS ORDERED: GABAPENTIN 300 MG CAP PO SCH (21:00)
[2018-05-05] MEDS ORDERED: CEFDINIR 300 MG CAP (OMNICEF) PO SCH (09:00)
== END 2018-05-04 14:41 | DRG 312 ==
LOC: M ED 16:23 → EDBD 16:23 → M ED INP 19:27 → M PCU 21:35 → M MSPAV 05-02 14:34 → OBSVTOIN 05-03 22:40
PROVIDERS: ADMIT General Practice; ATTEND Internal Medicine Nephrology
DX: I95.2 Hypotension due to drugs (principal); N39.0 Urinary tract infection, site not specified; I50.32 Chronic diastolic (congestive) heart failure; I13.0 Hypertensive heart and chronic kidney disease with heart failure and stage 1 through stage 4 chronic kidney disease, or unspecified chronic kidney disease; T50.1X5A Adverse effect of loop [high-ceiling] diuretics, initial encounter; I27.20 Pulmonary hypertension, unspecified; I25.10 Atherosclerotic heart disease of native coronary artery without angina pectoris; N18.3 Chronic kidney disease, stage 3 (moderate); I48.91 Unspecified atrial fibrillation; E86.0 Dehydration; R55 Syncope and collapse; E78.5 Hyperlipidemia, unspecified; E78.00 Pure hypercholesterolemia, unspecified; Z79.01 Long term (current) use of anticoagulants; B96.29 Other Escherichia coli [E. coli] as the cause of diseases classified elsewhere; E11.9 Type 2 diabetes mellitus without complications; Z79.899 Other long term (current) drug therapy; Z88.8 Allergy status to other drugs, medicaments and biological substances; Z96.641 Presence of right artificial hip joint; R42 Dizziness and giddiness

== ENCOUNTER 2018-05-04 14:33 | Inpatient (IN) | payer MEDICARE, OTHER ==
[~2018-05-04] VITALS: Ht 167.6 cm; Wt 81.9 kg
[~2018-05-04 14:33] MED LIST changes: +ATEN50TA2 PO; +CEFD300CAP PO; +ENAL5TAB PO; +FURO40TA2 PO; +KLOR10TA76 PO; +LEVO75TA4 PO; +RISATAB3 PO
[2018-05-04 15:28] VITALS: BP 137/63
[2018-05-04] MEDS ORDERED: MOM 30ML SUSPENSION UDC PO PRN (16:30)
[2018-05-04] MEDS ORDERED: DEXTROSE 50% 50 ML SYRINGE IV PRN (16:45)
[2018-05-04] MEDS ORDERED: GLUCOSE 4 GM CHEW TABLET PO PRN (16:45)
[2018-05-04] MEDS ORDERED: GLUCAGON FOR INJ 1 MG VIAL (J1610) SC PRN (16:45)
[2018-05-04] MEDS: HumaLOG INSULIN (NovoLOG) PER UNIT SC SCH (16:46)
[2018-05-04] MEDS: LACTOBACILLUS ACIDOPHILUS CAP (BACID) PO SCH (17:09)
[2018-05-04] MEDS: PANTOPRAZOLE 40MG TAB (PROTONIX) PO SCH (17:10)
[2018-05-04] MEDS: FLUTICASONE PROP 0.05% NASAL SPRAY 16 GM (FLONASE) NARES SCH (18:33)
[2018-05-04 20:00] VITALS: BP 151/70
[2018-05-04] MEDS: RIVAROXABAN 20 MG TAB (XARELTO) PO SCH (20:22)
[2018-05-04] MEDS: SODIUM CHLORIDE NASAL 0.65% SPRAY BTL (OCEAN) SCH (20:22)
[2018-05-04] MEDS: DOCUSATE SODIUM 100 MG CAP PO SCH (20:22)
[2018-05-04] MEDS: GABAPENTIN 300 MG CAP PO SCH (20:22)
[2018-05-05 06:00] VITALS: BP 140/54
[2018-05-05] MEDS: LEVOTHYROXINE 75MCG TABLET (0.075MG) PO SCH (06:04)
[2018-05-05 06:23] LABS: APPEARANCE, URINE CLEAR (CLEAR); BACTERIA, URINE AUTO NEGATIVE (NEGATIVE); BILIRUBIN, URINE AUTO NEGATIVE (NEGATIVE); BLOOD, URINE BLOOD 1+ (NEGATIVE); COLOR, URINE STRAW (YELLOW); GLUCOSE, URINE (UA) AUTO NEGATIVE (NEGATIVE); KETONE, URINE AUTO NEGATIVE (NEGATIVE); LEUKOCYTE ESTERASE, URINE AUTO NEGATIVE (NEGATIVE); NITRITE, URINE AUTO NEGATIVE (NEGATIVE); PROTEIN, URINE AUTO NEGATIVE (NEGATIVE); RBC, URINE AUTO 2 /HPF (0-3); SPECIFIC GRAVITY URINE AUTO 1.013 (1.002-1.035); SQUAMOUS EPITHELIAL CELL UR AU 0 /HPF (0-6); UROBILINOGEN, URINE AUTO 0.2 mg/dL (0.0-2.0); WBC, URINE AUTO 1 /HPF (0-3)
[2018-05-05 07:13] LABS: BASO # 0.1 10^3/uL (0.0-0.2); BASO % 0.8 % (0.0-1.0); EOS # 0.4 10^3/uL (0.0-0.50); EOS % 7.2 % (0.0-3.0); HEMOGLOBIN 10.2 g/dl (12.0-15.5); LYMPH # 1.7 10^3/uL (1.5-4.5); LYMPH % 27.9 % (24.0-44.0); MEAN CORPUSCULAR HEMOGLOBIN 28.7 pg (27.0-33.0); MEAN CORPUSCULAR HGB CONC 31.9 g/dl (32.0-36.5); MEAN CORPUSCULAR VOLUME 89.9 fl (80.0-96.0); MONO # 0.6 10^3/uL (0.0-0.8); NEUTROPHILS # 3.4 10^3/uL (1.8-7.7); NEUTROPHILS % 54.9 % (36.0-66.0); PLATELET COUNT, AUTOMATED 222 10^3/uL (150-450); RED BLOOD COUNT 3.56 10^6/uL (4.00-5.40); WHITE BLOOD COUNT 6.1 10^3/uL (4.0-10.0)
[2018-05-05 07:41] LABS: ALBUMIN 2.9 GM/DL (3.2-5.2); BILIRUBIN,TOTAL 0.4 MG/DL (0.2-1.0); CREATININE FOR GFR 1.21 MG/DL (0.55-1.30); GLOMERULAR FILTRATION RATE 44.6 (>32); POTASSIUM SERUM 4.4 MEQ/L (3.5-5.1); TOTAL PROTEIN 6.3 GM/DL (6.4-8.2)
[2018-05-05 08:13] VITALS: BP 136/65
[2018-05-05] MEDS: FLUTICASONE PROP 0.05% NASAL SPRAY 16 GM (FLONASE) NARES SCH (08:14)
[2018-05-05] MEDS: POTASSIUM CHLORIDE 10 MEQ SR TABLET PO SCH (08:14)
[2018-05-05] MEDS: PANTOPRAZOLE 40MG TAB (PROTONIX) PO SCH (08:14)
[2018-05-05] MEDS: SPIRONOLACTONE 50 MG TAB PO SCH (08:14)
[2018-05-05] MEDS: CEFDINIR 300 MG CAP (OMNICEF) PO SCH (08:14)
[2018-05-05] MEDS: LACTOBACILLUS ACIDOPHILUS CAP (BACID) PO SCH ×3 (08:15→17:41)
[2018-05-05] MEDS: HumaLOG INSULIN (NovoLOG) PER UNIT SC SCH ×3 (08:15→17:13)
[2018-05-05] MEDS: ATORVASTATIN 20 MG TAB PO SCH (08:15)
[2018-05-05] MEDS: SODIUM CHLORIDE NASAL 0.65% SPRAY BTL (OCEAN) SCH ×3 (08:16→20:14)
[2018-05-05] MEDS: DOCUSATE SODIUM 100 MG CAP PO SCH ×2 (08:18→20:13)
[2018-05-05] MEDS ORDERED: ENALAPRIL MALEATE 5 MG TAB PO SCH (09:00)
[2018-05-05] MEDS ORDERED: ATENOLOL 25 MG TAB PO SCH (09:00)
[2018-05-05] MEDS ORDERED: PANTOPRAZOLE 40MG TAB (PROTONIX) PO SCH (09:00)
--- NOTE | 2018-05-05 10:46 | REP ---
RIGHT FOOT, FOUR VIEWS: HISTORY: Lateral pain. There is no acute fracture or dislocation. There is narrowing of the tarsal metatarsal , first metatarsal phalangeal and intermediate and distal interphalangeal joint spaces as well as tiobtalar joint space. There is an old healed fracture of the fifth metatarsal. An osteophyte is present on the inferior calcaneus. The bony structure is osteopenic. A pes planus deformity is present. IMPRESSION: Degenerative change as described above. Electronically Signed by Jaziel Mortensen MD 05/05/2018 10:56 A
--- NOTE | 2018-05-05 11:12 | IPNPDOC ---
Date Seen The patient was seen on 05/05/18. Progress Note HPI: Patient is an 88-year-old woman. She has medical history significant for coronary artery disease, congestive heart failure, diabetes, hypertension, hypercholesterolemia and A. fib on Xarelto. According to her, she was in her usual state of health until about sometime in the afternoon when she was preparing her dinner when she felt dizzy and had to grab onto furniture, sat down hoping the dizziness will chloe but 10 minutes later she still had the symptom of dizziness and subsequently activated EMS. Subsequently felt related to age with some degree of autonomic neuropathy in the presence of too well controlled blood pressures and mild intravascular volume depletion due to diuretics. The pt was transferred to the care of [facility], Dr Friend, 05/04/18. No acute medical complaints today. OOB to cahir and ambulating around her room with her walker. Denies any fevers, chills, weakness, fatigue, Headache, Chest Pain, Shortness of breath, cough, palpitations, abdominal pain, N/V/D or changes in bowel or bladder habits. PMHx: coronary artery disease, congestive heart failure, TTE 05/07 EF 75%, DD, Moderately severe mitral annular calcification without inflow tract obstruction and mild insufficiency DM hypertension, hypercholesterolemia A. fib on Xarelto PE: GEN: 88yoF, appears stated age. No acute distress. Alert and oriented x 3. Pleasant, interactive. HEENT: Normocephalic, atraumatic. Sclera are nonicteric. Conjunctiva without injection. Nose midline. Nasal turbinates without bogginess. No facial asymmetry. Moist mucous membranes. Dentition fair. Neck supple, trachea midline. No lymphadenopathy or thyromegaly appreciated. CHEST: Regular rate and rhythm, +S1, +S2 LUNGS: Clear to auscultation bilaterally. No wheezes, rales, or rhonchi. Breathing appears symmetric and easy. ABD: Round, soft, non-tender, non-distended. +Bowel sounds throughout. No rebound or guarding. No costovertebral angle tenderness. EXT: Pulses 2+ bilaterally dorsalis pedis and radial. No lower extremity edema appreciated. SKIN: [place], dry, warm. Capillary refill <2sec. No rashes. NEURO: Alert and oriented x 3. Cranial nerves III-XII are intact. No focal def icits appreciated. A&P: Patient is an 88-year-old woman. She has medical history significant for coronary artery disease, congestive heart failure, diabetes, hypertension, hypercholesterolemia and A. fib on Xarelto. According to her, she was in her usual state of health until about sometime in the afternoon when she was preparing her dinner when she felt dizzy and had to grab onto furniture, sat down hoping the dizziness will chloe but 10 minutes later she still had the symptom of dizziness and subsequently activated EMS. Subsequently felt related to age with some degree of autonomic neuropathy in the presence of too well controlled blood pressures and mild intravascular volume depletion due to diuretics Debility. Mgmt as per [facility]U. PT/OT/ST as per [facility]. Pain control as per [facility]. Bowel care as per [facility]. Disposition as per [facility]. DVT px. Pt on Xarelto. Fall precautions. Dizziness, lightheadedness with posture change, though no orthostatic changes noted [place] due to age with some degree of autonomic neuropathy in the presence of too well controlled blood pressures and mild intravascular volume depletion due to diuretics. plan to allow higher blood pressures and less diuretics. Gabapentin dose decreased. No clinical signs of vestibular dysfunction or BPPV. Monitor. Presyncope probably due to too well controlled blood pressures for her age with mild intra vascular volume depletion from diuretics. Echo diastolic dysfunction only, normal EF no valvular abnormality telemetry monitoring unremarkable orthostatics were negative after IVF in ED. UTI urine culture e coli. ceftriaxone changed to po cefdinir. Atrial fibrillation rate controlled Atenolol with hold parameters Xarelto 20 mg daily. Diabetes Continue with consistent carb with no added salt diet. SSI FSBS 96-177 Hypertension/HHD/DD Previously too well controlled for an elderly lady with occasional readings in 100s and 110s continue spironolactone atenolol with hold parameters Enalapril with hold parameters Lasix at reduced dosage. CKD stage 3 at baseline creatinine. avoid nephrotoxins, renally dose meds. SCr 1.21 History of MRSA postop hip replacement infection contact isolation Hypothyroid. Synthroid. HLD. Lipitor. VS, I&O, 24H, Fishbone Vital Signs/I&O Vital Signs Date Time Temp Pulse Resp B/P (MAP) Pulse Ox O2 Delivery O2 Flow Rate FiO2 05/05/18 08:15 136/65 05/05/18 08:15 61 05/05/18 06:00 97.6 18 92 Room Air I&O- Last 24 Hours up to 6 AM 05/05/18 06:00 Intake Total 195 ml Output Total 375 ml Balance -180 ml Laboratory Data 24H LABS Laboratory Tests 2 05/04/18 16:43: Bedside Glucose (Misc Panel) 96 05/04/18 19:48: Bedside Glucose (Misc Panel) 179H 05/05/18 05:34: Bedside Glucose (Misc Panel) 123H 05/05/18 06:02: Urine Appearance CLEAR, Urine Color STRAW, Urine pH 5.0, Urine Specific [place] 1.013, Urine Protein NEGATIVE, Urine Glucose (UA) NEGATIVE, Urine Ketones NEGATIVE, Urine Urobilinogen 0.2, Urine Bilirubin NEGATIVE, Urine Leukocyte Esterase NEGATIVE, Urine Blood 1+H, Urine Nitrite NEGATIVE, Urine WBC (Auto) 1, Urine RBC (Auto) 2, Urine Hyaline Casts (Auto) 0, Urine Bacteria (Auto) NEGATIVE, Urine Squamous Epithelial Cells 0, Urine Sperm (Auto) 05/05/18 06:44: Immature Granulocyte % (Auto) 0.2, White Blood Count 6.1, Red Blood Count 3.56L, Hemoglobin 10.2L, Hematocrit 32.0L, Mean Corpuscular Volume 89.9, Mean Corpuscular Hemoglobin 28.7, Mean Corpuscular Hemoglobin Concent 31.9L, Red Cell Distribution Width 15.9H, Platelet Count 222, Neutrophils (%) (Auto) 54.9, Lymphocytes (%) (Auto) 27.9, Monocytes (%) (Auto) 9.0H, Eosinophils (%) (Auto) 7.2H, Basophils (%) (Auto) 0.8, Neutrophils # (Auto) 3.4, Lymphocytes # (Auto) 1.7, Monocytes # (Auto) 0.6, Eosinophils # (Auto) 0.4, Basophils # (Auto) 0.1, Nucleated Red Blood Cells % (auto) 0.0, Anion Gap 11, Glomerular Filtration Rate 44.6, Blood Urea Nitrogen 48H, Creatinine 1.21, Sodium Level 144, Potassium Level 4.4, Chloride Level 109H, Carbon Dioxide Level 24, Calcium Level 9.0, Aspartate Amino Transf (AST/SGOT) 10, Alanine Aminotransferase (ALT/SGPT) 20, Alkaline Phosphatase 94, Total Bilirubin 0.4, Total Protein 6.3L, Albumin 2.9L, Albumin/Globulin Ratio 0.85L CBC/BMP Laboratory Tests 05/05/18 06:44 Red Blood Count 3.56 L, Mean Corpuscular Volume 89.9, Mean Corpuscular Hemoglobin 28.7, Mean Corpuscular Hemoglobin Concent 31.9 L, Red Cell Distribution Width 15.9 H, Neutrophils (%) (Auto) 54.9, Lymphocytes (%) (Auto) 27.9, Monocytes (%) (Auto) 9.0 H, Eosinophils (%) (Auto) 7.2 H, Basophils (%) (Auto) 0.8, Neutrophils # (Auto) 3.4, Lymphocytes # (Auto) 1.7, Monocytes # (Auto) 0.6, Eosinophils # (Auto) 0.4, Basophils # (Auto) 0.1, Calcium Level 9.0, Aspartate Amino Transf (AST/SGOT) 10, Alanine Aminotransferase (ALT/SGPT) 20, Alkaline Phosphatase 94, Total Bilirubin 0.4, Total Protein 6.3 L, Albumin 2.9 L Microbiology Microbiology 05/05/18 Urine Culture, Received Pending Alena Austin May 05, 2018 11:12
--- NOTE | 2018-05-05 11:22 | REP ---
RIGHT ANKLE, FOUR VIEWS: HISTORY: Lateral pain. There is no acute fracture or dislocation. There is marked narrowing of the joint space with associated sclerosis. An osteophyte is present on the inferior calcaneus. The bony structure is osteopenic. Soft tissue swelling is present. IMPRESSION: Degenerative change, as described above. Electronically Signed by Jaziel Mortensen MD 05/05/2018 11:26 A
[2018-05-05] MEDS: FUROSEMIDE 20 MG TAB PO SCH (12:00)
--- NOTE | 2018-05-05 13:01 | HPEPDOC ---
Home Housekeeper Note DATE OF ADMISSION: May 04, 2018 at 14:43 SOURCE OF ADMISSION INFORMATION: Patient and [facility] records CHIEF COMPLAINT: debility secondary to presyncope HISTORY OF PRESENT ILLNESS: 88F pmh CAD, diastolic CHF, HTN, DM, and Afib on Xarelto who had an episode of dizziness and near syncope while at home. She denied having chest pain, shortness of breath, aor LOC at the time and was brought to [facility] ED on 05-01-18 where CTH was negative for acute stroke showing, There is parenchymal volume loss. White matter changes are demonstrated in the subcortical, centrum semiovale and periventricular white matter consistent with small vessel white matter angiopathic gliosis. She was evaluated by cardiology who performed an ECHO which revealed Mildly dilated left atrium with Doppler evidence of impairment of LV diastolic function and at least mildly elevated mean left atrial pressureMildly dilated right heart chambers with normal right ventricular free wall. She was given IVF for her dizziness and urinalysis and culture grew E. coli for which she was placed on oral antibiotics. She was found to have significant weakness and difficultly with ambulation and ADLs and deemed medically appropriate for discharge to ARU on 05-04-18. REVIEW OF SYSTEMS: The following is a completed review of systems and has been reviewed. Review of systems otherwise unremarkable. PAIN: Patient self reports no pain EYES: Negative for recent vision changes EARS, NOSE, & THROAT: +sinus pressure, otherwise no dysphagia rhinorrhea of throat pain CARDIOVASCULAR: denies chest pain, +CHF and Afib PULMONARY: Negative. Denies shortness of breath GASTROINTESTINAL: Negative for diarrhea/constipation GENITOURINARY: +UTI MUSCULOSKELETAL: bilateral leg swelling and right ankle pain NEUROLOGICAL: no focal deficits or seizures SKIN: no breakdown PSYCHIATRIC: Unremarkable All other review of systems found to be negative. PAST MEDICAL HISTORY: CAD, diastolic CHF, HTN, DM, and Afib on Xarelto PAST SURGICAL HISTORY: Right total hip replacement ALLERGIES: Please see below. MEDICATIONS: Please see below. FAMILY HISTORY: son with multiple kidney transplants SOCIAL HISTORY: Lives alone, twice, denies smoking, ETOH or illicit drugs use DIET: Low Salt PHYSICAL EXAMINATION: VITAL SIGNS: Please see below. GENERAL: Pleasant and cooperative. No acute distress. HEENT: PERRL. Extraocular movements intact. Clear conjunctiva CARDIOVASCULAR: Irregular rate and rhythm. No murmurs, rubs, or gallops LUNGS: Clear to auscultation bilaterally. No wheezes. No rhonchi ABDOMEN: Soft, nontender, nondistended. Positive bowel sounds. Normal active bowel sounds NEUROLOGICAL: Alert and oriented times three. Cranial nerves II through XII grossly intact. Sensation grossly intact EXTREMITIES: 5-/5 strength bilateral upper extremities. 5-\5 strength right lower extremity. 5-/5 strength in left lower extremity. +bilateral LE edema (+) TTP right lateral malleoli, +pain with varus strain on right pedal pulses intact, skin warm to touch and well perfused SKIN: intact IMAGING: Imaging documentation personally reviewed by record FUNCTIONAL STATUS: Premorbid: Modified Independent with all activities of daily life as well as mobility using a RW. On Admission: CG functional transfers and ambulation- 39F RW and Min Assist bathing and lower body dressing GOALS: Modified Independet with RW for ambulation, Mod-I for dressing, bathing, grooming, all functional transfers, SBA-Mod-I for stairs, medical optimization, caregiver training, possible home eval, and assess for DME needs. ASSESSMENT:88-year-old F with past medical history of CAD, Afib who presents status post pre-syncopal episode found to have UTI admitted for debility. PLAN: 1. Rehab: PT/OT, assess for DME needs 2. Neuro: stable, admission CTH negative for acute stroke 3. CArdio: pmf Afib on XArelto, continue beta-luiza, diastolic CHF with LE edema, continue diuretics and tonja-wrap legs-monitor for dizziness and adjust medications accordingly- medicine consulted 4. resp:incetive spirometry, stable 5. Endo: pmh hypothyroidism continue synthroid, DM continue ISS coverage 6. : E coli UTI on Cefdinir, monitor PVRs and f/u admisison UA and Ucx 7. GI ppx: on Protonix 8. DVT ppx: on Xarelto dosed for Afib 9. Ortho: right lateral ankle pain, will order X-ray to rule out fracture 9. Dispo: TBD POST ADMISSION PHYSICIAN EVALUATION: Medical and functional status: Description of medical status, medical assessment: As above. Rehabilitation diagnosis and current and prior cold morbid medical conditions as above. Risk of complications and plans to mitigate them as above. Description of functional status current status is as above. Prior status as above. Status compared to preadmission: There are no clinically significant differences between the patient's current status and the information described on the preadmission screening document. Treatment plan anticipated: Treatment plan is as described above. Required disciplines including physical therapy, occupational therapy, others as noted above Intensity of services: 3 hours a day, 6 days a week. Special considerations: There are no specific special or safety considerations that would likely preclude immediate implementation of an intensive rehabilitation program or subsequently influence the plan of care ATTESTATION: Considering all the information above, it is my best judgment that this patient requires intensive rehabilitation therapy as described above and an inpatient hospital environment due to the complexity of nursing, medical, and rehabilitation needs required by the patient. Furthermore, this patient can reasonably be expected to participate in an benefit from an inpatient rehabilitation stay with an interdisciplinary team approach to the delivery of rehabilitation care under the direction and supervision of rehabilitation physician PROGNOSIS: Excellent ESTIMATED LENGTH OF STAY:10-12 days. PROJECTED DISCHARGE DESTINATION: Home with family support and any durable medical equipment required to increase functional safety and mobility TIME SPENT COUNSELING AND COORDINATING INITIAL CARE: Greater than 70 minutes. Vital Signs Vital Sign - Last 24 Hours 05/04/18 05/04/18 05/05/18 05/05/18 15:28 20:00 06:00 08:13 Temp 98.1 97.6 97.6 Pulse 70 70 70 61 Resp 18 18 18 B/P (MAP) 137/63 (87) 151/70 (97) 140/54 (82) 136/65 (88) Pulse Ox 95 96 92 O2 Delivery Room Air Room Air Room Air 05/05/18 05/05/18 08:15 08:15 Pulse 61 B/P (MAP) 136/65 136/65 Laboratory Data CBC/BMP Laboratory Tests 05/05/18 06:44 Red Blood Count 3.56 L, Mean Corpuscular Volume 89.9, Mean Corpuscular Hemoglobin 28.7, Mean Corpuscular Hemoglobin Concent 31.9 L, Red Cell Distribution Width 15.9 H, Neutrophils (%) (Auto) 54.9, Lymphocytes (%) (Auto) 27.9, Monocytes (%) (Auto) 9.0 H, Eosinophils (%) (Auto) 7.2 H, Basophils (%) (Auto) 0.8, Neutrophils # (Auto) 3.4, Lymphocytes # (Auto) 1.7, Monocytes # (Auto) 0.6, Eosinophils # (Auto) 0.4, Basophils # (Auto) 0.1, Calcium Level 9.0, Aspartate Amino Transf (AST/SGOT) 10, Alanine Aminotransferase (ALT/SGPT) 20, Alkaline Phosphatase 94, Total Bilirubin 0.4, Total Protein 6.3 L, Albumin 2.9 L Labs 24H Laboratory Tests 2 05/04/18 16:43: Bedside Glucose (Misc Panel) 96 05/04/18 19:48: Bedside Glucose (Misc Panel) 179H 05/05/18 05:34: Bedside Glucose (Misc Panel) 123H 05/05/18 06:02: Urine Appearance CLEAR, Urine Color STRAW, Urine pH 5.0, Urine Specific [place] 1.013, Urine Protein NEGATIVE, Urine Glucose (UA) NEGATIVE, Urine Ketones NEGATIVE, Urine Urobilinogen 0.2, Urine Bilirubin NEGATIVE, Urine Leukocyte Esterase NEGATIVE, Urine Blood 1+H, Urine Nitrite NEGATIVE, Urine WBC (Auto) 1, Urine RBC (Auto) 2, Urine Hyaline Casts (Auto) 0, Urine Bacteria (Auto) NEGATIVE, Urine Squamous Epithelial Cells 0, Urine Sperm (Auto) 05/05/18 06:44: Immature Granulocyte % (Auto) 0.2, White Blood Count 6.1, Red Blood Count 3.56L, Hemoglobin 10.2L, Hematocrit 32.0L, Mean Corpuscular Volume 89.9, Mean Corpuscular Hemoglobin 28.7, Mean Corpuscular Hemoglobin Concent 31.9L, Red Cell Distribution Width 15.9H, Platelet Count 222, Neutrophils (%) (Auto) 54.9, Lymphocytes (%) (Auto) 27.9, Monocytes (%) (Auto) 9.0H, Eosinophils (%) (Auto) 7.2H, Basophils (%) (Auto) 0.8, Neutrophils # (Auto) 3.4, Lymphocytes # (Auto) 1.7, Monocytes # (Auto) 0.6, Eosinophils # (Auto) 0.4, Basophils # (Auto) 0.1, Nucleated Red Blood Cells % (auto) 0.0, Anion Gap 11, Glomerular Filtration Rate 44.6, Blood Urea Nitrogen 48H, Creatinine 1.21, Sodium Level 144, Potassium Level 4.4, Chloride Level 109H, Carbon Dioxide Level 24, Calcium Level 9.0, Aspartate Amino Transf (AST/SGOT) 10, Alanine Aminotransferase (ALT/SGPT) 20, Alkaline Phosphatase 94, Total Bilirubin 0.4, Total Protein 6.3L, Albumin 2.9L, Albumin/Globulin Ratio 0.85L 05/05/18 11:33: Bedside Glucose (Misc Panel) 177H FSBS Laboratory Tests Test 05/04/18 16:43 05/04/18 19:48 05/05/18 05:34 05/05/18 11:33 Range/Units Bedside Glucose (Misc Panel) 96 179 123 177 83-110 MG/DL Microbiology Microbiology 05/05/18 Urine Culture, Received Pending Home Medications Scheduled (Sandra-Bid Probiotic) 1 Tab Tab, 1 EA PO WM Atenolol (Atenolol) 50 Mg Tab, 50 MG PO DAILY, (Reported) Atorvastatin Calcium (Atorvastatin Calcium) 80 Mg Tab, 80 MG PO 2XWK, (Reported) TAKES ON WEDNESDAY AND WEDNESDAY Cefdinir (Cefdinir) 300 Mg Cap, 300 MG PO DAILY Esomeprazole Magnesium Trihydr (Nexium) 40 Mg Cap, 40 MG PO DAILY, (Reported) Furosemide (Furosemide) 40 Mg Tab, 40 MG PO DAILY take only in morning Gabapentin (Gabapentin) 300 Mg Cap, 300 MG PO QHS Levothyroxine Sodium (Synthroid) 75 Mcg Tab, 75 MCG PO DAILY, (Reported) Potassium Chloride (Klor-Con M10) 10 Meq Tabcr, 20 MEQ PO DAILY, (Reported) Rivaroxaban (Xarelto) 20 Mg Tab, 20 MG PO QHS, (Reported) Spironolactone (Spironolactone) 50 Mg Tab, 50 MG PO DAILY, (Reported) Allergies Coded Allergies: Iodine (Verified Allergy, Unknown, BLISTER & BLISTERS, 07/20/12) Povidone (Verified Allergy, Unknown, BLISTERS & BLISTERS, 07/20/12) BULMARO CHO MD May 05, 2018 13:01
[2018-05-05] MEDS ORDERED: PILL CRUSHER/CUTTER 1 EACH XX PRN (13:15)
[2018-05-05 14:00] VITALS: BP 141/73
[2018-05-05] MEDS: ACETAMINOPHEN TAB 650MG DOSE (2X325MG) PO PRN ×2 (14:49→20:16)
--- NOTE | 2018-05-05 17:28 | REP ---
BILATERAL LOWER EXTREMITY DUPLEX VEINS: HISTORY: Leg swelling. RIGHT LOWER EXTREMITY: There are no filling defects in the deep venous system. The deep venous system is patent. Two lymph nodes are present in the right groin. These measure 1.2 and 2 cm in maximum dimension. IMPRESSION: There is no deep venous thrombosis. LEFT LOWER EXTREMITY: There are no filling defects in the deep venous system. The deep venous system is patent. 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 IMPRESSION: There is no deep venous thrombosis. Electronically Signed by Jaziel Mortensen MD 05/05/2018 05:38 P
[2018-05-05 20:00] VITALS: BP 165/70
[2018-05-05] MEDS: RIVAROXABAN 20 MG TAB (XARELTO) PO SCH (20:13)
[2018-05-05] MEDS: GABAPENTIN 300 MG CAP PO SCH (20:13)
[2018-05-05] MEDS: NYSTATIN CREAM 15 GM TOP SCH (20:15)
[2018-05-05] MEDS: ACETAMINOPHEN TAB 650MG DOSE (2X325MG) PO SCH (21:00)
--- NOTE | 2018-05-05 21:16 | IPNPDOC ---
PM&R Progress Note DATE OF SERVICE: May 05, 2018 Email Marketing Processor Progress Note Subjective: Patient reports she did not sleep well last night and usually takes Tylenol to sleep. he reports feeling mildly dizzy today in therapy without room spinning. REVIEW OF SYSTEMS: The following is a completed review of systems and has been reviewed. Review of systems otherwise unremarkable. PAIN: Patient self reports no pain EYES: Negative for recent vision changes EARS, NOSE, & THROAT: +sinus pressure, otherwise no dysphagia rhinorrhea of throat pain CARDIOVASCULAR: denies chest pain, +CHF and Afib PULMONARY: Negative. Denies shortness of breath GASTROINTESTINAL: Negative for diarrhea/constipation GENITOURINARY: +UTI MUSCULOSKELETAL: bilateral leg swelling and right ankle pain NEUROLOGICAL: no focal deficits or seizures SKIN: no breakdown PSYCHIATRIC: Unremarkable All other review of systems found to be negative. PHYSICAL EXAMINATION: VITAL SIGNS: Please see below. GENERAL: Pleasant and cooperative. No acute distress. HEENT: PERRL. Extraocular movements intact. Clear conjunctiva CARDIOVASCULAR: Irregular rate and rhythm. No murmurs, rubs, or gallops LUNGS: Clear to auscultation bilaterally. No wheezes. No rhonchi ABDOMEN: Soft, nontender, nondistended. Positive bowel sounds. Normal active bowel sounds NEUROLOGICAL: Alert and oriented times three. Cranial nerves II through XII grossly intact. Sensation grossly intact EXTREMITIES: 5-/5 strength bilateral upper extremities. 5-\5 strength right lower extremity. 5-/5 strength in left lower extremity. +bilateral LE edema (+) TTP right lateral malleoli, +pain with varus strain on right pedal pulses intact, skin warm to touch and well perfused SKIN: intact ASSESSMENT:88-year-old F with past medical history of CAD, Afib who presents status post pre-syncopal episode found to have UTI admitted for debility. PLAN: 1. Rehab: PT/OT, assess for DME needs, ambulating with RW 2. Neuro: stable, admission CTH negative for acute stroke 3. CArdio: pmf Afib on XArelto, continue beta-luiza, diastolic CHF with LE edema, continue diuretics and tonja-wrap legs-monitor for dizziness and adjust medications accordingly- will change timing of Atenolol to 12 pm and decrease Enalapril dose to 2.5mg to avoid dizziness, patient denies vertigo -medicine consulted, recs appreciated 4. resp:incetive spirometry, stable 5. Endo: pmh hypothyroidism continue synthroid, DM continue ISS coverage 6. : E coli UTI on Cefdinir, monitor PVRs and f/u admission UA and Ucx 7. GI ppx: on Protonix 8. DVT ppx: on Xarelto dosed for Afib, Dopplers negative for DVT 9. Ortho: right lateral ankle pain, ankle and femoral X-ray negative for fracture 9. Dispo: TBD Allergies Coded Allergies: Iodine (Verified Allergy, Unknown, BLISTER & BLISTERS, 07/20/12) Povidone (Verified Allergy, Unknown, BLISTERS & BLISTERS, 07/20/12) Vital Signs Vital Signs Date Time Temp Pulse Resp B/P (MAP) Pulse Ox O2 Delivery O2 Flow Rate FiO2 05/05/18 14:00 97.3 68 17 141/73 (95) 98 Room Air Laboratory Data CBC/BMP Laboratory Tests 05/05/18 06:44 Red Blood Count 3.56 L, Mean Corpuscular Volume 89.9, Mean Corpuscular Hemoglobin 28.7, Mean Corpuscular Hemoglobin Concent 31.9 L, Red Cell Distri bution Width 15.9 H, Neutrophils (%) (Auto) 54.9, Lymphocytes (%) (Auto) 27.9, Monocytes (%) (Auto) 9.0 H, Eosinophils (%) (Auto) 7.2 H, Basophils (%) (Auto) 0.8, Neutrophils # (Auto) 3.4, Lymphocytes # (Auto) 1.7, Monocytes # (Auto) 0.6, Eosinophils # (Auto) 0.4, Basophils # (Auto) 0.1, Calcium Level 9.0, Aspartate Amino Transf (AST/SGOT) 10, Alanine Aminotransferase (ALT/SGPT) 20, Alkaline Phosphatase 94, Total Bilirubin 0.4, Total Protein 6.3 L, Albumin 2.9 L Labs 24H Laboratory Tests 2 05/05/18 05:34: Bedside Glucose (Misc Panel) 123H 05/05/18 06:02: Urine Appearance CLEAR, Urine Color STRAW, Urine pH 5.0, Urine Specific [place] 1.013, Urine Protein NEGATIVE, Urine Glucose (UA) NEGATIVE, Urine Ketones NEGATIVE, Urine Urobilinogen 0.2, Urine Bilirubin NEGATIVE, Urine Leukocyte Esterase NEGATIVE, Urine Blood 1+H, Urine Nitrite NEGATIVE, Urine WBC (Auto) 1, Urine RBC (Auto) 2, Urine Hyaline Casts (Auto) 0, Urine Bacteria (Auto) NEGATIVE, Urine Squamous Epithelial Cells 0, Urine Sperm (Auto) 05/05/18 06:44: Immature Granulocyte % (Auto) 0.2, White Blood Count 6.1, Red Blood Count 3.56L, Hemoglobin 10.2L, Hematocrit 32.0L, Mean Corpuscular Volume 89.9, Mean Corpuscular Hemoglobin 28.7, Mean Corpuscular Hemoglobin Concent 31.9L, Red Cell Distribution Width 15.9H, Platelet Count 222, Neutrophils (%) (Auto) 54.9, Lymphocytes (%) (Auto) 27.9, Monocytes (%) (Auto) 9.0H, Eosinophils (%) (Auto) 7.2H, Basophils (%) (Auto) 0.8, Neutrophils # (Auto) 3.4, Lymphocytes # (Auto) 1.7, Monocytes # (Auto) 0.6, Eosinophils # (Auto) 0.4, Basophils # (Auto) 0.1, Nucleated Red Blood Cells % (auto) 0.0, Anion Gap 11, Glomerular Filtration Rate 44.6, Blood Urea Nitrogen 48H, Creatinine 1.21, Sodium Level 144, Potassium Level 4.4, Chloride Level 109H, Carbon Dioxide Level 24, Calcium Level 9.0, Aspartate Amino Transf (AST/SGOT) 10, Alanine Aminotransferase (ALT/SGPT) 20, Alkaline Phosphatase 94, Total Bilirubin 0.4, Total Protein 6.3L, Albumin 2.9L, Albumin/Globulin Ratio 0.85L 05/05/18 11:33: Bedside Glucose (Misc Panel) 177H 05/05/18 16:56: Bedside Glucose (Misc Panel) 98 05/05/18 20:20: Bedside Glucose (Misc Panel) 171H Microbiology Microbiology 05/05/18 Urine Culture, Received Pending Current Medications Current Medications Current Medications Acetaminophen (Tylenol Tab) 650 mg Q4HP PRN PO fever/MILD PAIN (PS 1-4) Last administered on 05/05/18at 20:16; Start 05/04/18 at 16:30 Atenolol (Tenormin) 25 mg DAILY PO Last administered on 05/05/18at 08:15; Start 05/05/18 at 09:00; Stop 05/05/18 at 13:02; Status DC Atenolol (Tenormin) 25 mg DAILY@1200 PO ; Start 05/06/18 at 12:00 Atorvastatin Calcium (Lipitor) 80 mg TuTh@0900 PO Last administered on 05/05/18at 08:15; Start 05/05/18 at 09:00 Cefdinir (Omnicef) 300 mg DAILY PO Last administered on 05/05/18at 08:14; Start 05/05/18 at 09:00; Stop 05/09/18 at 09:01 Dextrose (Dextrose 50%) 25 ml ASDIRECTED PRN IV SEE LABEL COMMENTS; Start 05/04/18 at 16:45 Docusate Sodium (Colace) 100 mg BID PO Last administered on 05/05/18at 20:13; Start 05/04/18 at 21:00 Enalapril Maleate (Vasotec) 2.5 mg DAILY PO ; Start 05/06/18 at 09:00 Enalapril Maleate (Vasotec) 5 mg DAILY PO Last administered on 05/05/18at 08:15; Start 05/05/18 at 09:00; Stop 05/05/18 at 13:02; Status DC Fluticasone Propionate (Flonase 0.05% Nasal [place]) 2 spray DAILY NARES Last administered on 05/05/18at 08:14; Start 05/04/18 at 09:00 Furosemide (Lasix) 20 mg DAILY@1200 PO Last administered on 05/05/18at 12:00; Start 05/05/18 at 12:00 Gabapentin (Neurontin) 300 mg QHS PO Last administered on 05/05/18at 20:13; Start 05/04/18 at 21:00 Glucagon (Glucagon) 1 mg ASDIRECTED PRN SC SEE LABEL COMMENTS; Start 05/04/18 at 16:45 Glucose (Glucose) 16 GM ASDIRECTED PRN PO SEE LABEL COMMENTS; Start 05/04/18 at 16:45 Home Med (Med Rec Complete!) ASDIRECTED XX ; Start 05/04/18 at 18:00; Stop 05/04/18 at 18:00; Status DC Insulin Human Lispro (HumaLOG INSULIN) SEE PROTOCOL TABLE AC SC Last administered on 05/05/18at 12:00; Start 05/04/18 at 17:30 Lactobacillus Acidophilus (Bacid) 1 ea WM PO Last administered on 05/05/18at 17:41; Start 05/04/18 at 18:00 Levothyroxine Sodium (Synthroid) 75 mcg DAILY@06 PO Last administered on 05/05/18at 06:04; Start 05/05/18 at 06:00 Magnesium Hydroxide (Milk Of Magnesia) 30 ml DAILYPRN PRN PO CONSTIPATION; Start 05/04/18 at 16:30 Nystatin (Mycostatin) apply to leg crea... BID TOP Last administered on 05/05/18at 20:15; Start 05/05/18 at 21:00 Pantoprazole Sodium (Protonix) 40 mg DAILY PO Last administered on 05/05/18at 08:14; Start 05/04/18 at 09:00 Pantoprazole Sodium (Protonix) 40 mg DAILY PO ; Start 05/05/18 at 09:00; Stop 05/05/18 at 09:00; Status DC Potassium Chloride (Micro-K Extencaps) 20 meq DAILY PO Last administered on 05/05/18at 08:14; Start 05/05/18 at 09:00 Rivaroxaban (Xarelto) 20 mg QHS PO Last administered on 05/05/18at 20:13; Start 05/04/18 at 21:00 Sodium Chloride ([place] Nasal [place]) 2 spray TID NA Last administered on 05/05/18at 20:14; Start 05/04/18 at 21:00 Spironolactone (Aldactone) 50 mg DAILY PO Last administered on 05/05/18at 08:14; Start 05/05/18 at 09:00 BULMARO CHO MD May 05, 2018 21:16
[2018-05-06] MEDS: LEVOTHYROXINE 75MCG TABLET (0.075MG) PO SCH (05:16)
[2018-05-06 06:20] VITALS: BP 150/60
[2018-05-06 07:27] LABS: BASO # 0.1 10^3/uL (0.0-0.2); BASO % 0.9 % (0.0-1.0); EOS # 0.4 10^3/uL (0.0-0.50); EOS % 7.4 % (0.0-3.0); HEMATOCRIT 30.2 % (36.0-47.0); HEMOGLOBIN 9.6 g/dl (12.0-15.5); LYMPH # 1.9 10^3/uL (1.5-4.5); LYMPH % 34.4 % (24.0-44.0); MEAN CORPUSCULAR HEMOGLOBIN 28.7 pg (27.0-33.0); MEAN CORPUSCULAR HGB CONC 31.8 g/dl (32.0-36.5); MEAN CORPUSCULAR VOLUME 90.1 fl (80.0-96.0); MONO # 0.4 10^3/uL (0.0-0.8); MONO % 7.8 % (0.0-5.0); NEUTROPHILS # 2.6 10^3/uL (1.8-7.7); NEUTROPHILS % 49.1 % (36.0-66.0); PLATELET COUNT, AUTOMATED 227 10^3/uL (150-450); RED BLOOD COUNT 3.35 10^6/uL (4.00-5.40); WHITE BLOOD COUNT 5.4 10^3/uL (4.0-10.0)
[2018-05-06 07:49] LABS: CALCIUM LEVEL 8.9 MG/DL (8.8-10.2); CREATININE FOR GFR 1.22 MG/DL (0.55-1.30); GLOMERULAR FILTRATION RATE 44.2 (>32); POTASSIUM SERUM 4.8 MEQ/L (3.5-5.1)
[2018-05-06] MEDS: CEFDINIR 300 MG CAP (OMNICEF) PO SCH (08:55)
[2018-05-06] MEDS: DOCUSATE SODIUM 100 MG CAP PO SCH ×2 (08:56→21:00)
[2018-05-06] MEDS: LACTOBACILLUS ACIDOPHILUS CAP (BACID) PO SCH ×3 (08:56→16:24)
[2018-05-06] MEDS: SPIRONOLACTONE 50 MG TAB PO SCH (08:56)
[2018-05-06] MEDS: ENALAPRIL MALEATE 5 MG TAB PO SCH (08:56)
[2018-05-06] MEDS: POTASSIUM CHLORIDE 10 MEQ SR TABLET PO SCH (08:56)
[2018-05-06] MEDS: PANTOPRAZOLE 40MG TAB (PROTONIX) PO SCH (08:56)
[2018-05-06] MEDS: NYSTATIN CREAM 15 GM TOP SCH ×2 (08:57→21:03)
[2018-05-06] MEDS: SODIUM CHLORIDE NASAL 0.65% SPRAY BTL (OCEAN) SCH ×3 (08:57→21:03)
[2018-05-06] MEDS: FLUTICASONE PROP 0.05% NASAL SPRAY 16 GM (FLONASE) NARES SCH (08:57)
[2018-05-06] MEDS: ATENOLOL 25 MG TAB PO SCH (12:00)
--- NOTE | 2018-05-06 12:03 | HPEPDOC ---
[facility] Medical History & Physical Date of Admission May 06, 2018 History and Physical HPI: Patient is an 88-year-old woman. She has medical history significant for coronary artery disease, congestive heart failure, diabetes, hypertension, hypercholesterolemia and A. fib on Xarelto. According to her, she was in her usual state of health until about sometime in the afternoon when she was preparing her dinner when she felt dizzy and had to grab onto furniture, sat down hoping the dizziness will chloe but 10 minutes later she still had the symp irene of dizziness and subsequently activated EMS. Subsequently felt related to age with some degree of autonomic neuropathy in the presence of too well controlled blood pressures and mild intravascular volume depletion due to diuretics. The pt was transferred to the care of ARU, Dr Friend, 05/04/18. No acute medical complaints today. OOB to cahir and ambulating around her room with her walker. Denies any fevers, chills, weakness, fatigue, Headache, Chest Pain, Shortness of breath, cough, palpitations, abdominal pain, N/V/D or changes in bowel or bladder habits. PMHx: coronary artery disease, congestive heart failure, TTE 05/07 EF 75%, DD, Moderately severe mitral annular calcification without inflow tract obstruction and mild insufficiency DM hypertension, hypercholesterolemia A. fib on Xarelto PE: GEN: 88yoF, appears stated age. No acute distress. Alert and oriented x 3. Pleasant, interactive. HEENT: Normocephalic, atraumatic. Sclera are nonicteric. Conjunctiva without injection. Nose midline. Nasal turbinates without bogginess. No facial asymmet ry. Moist mucous membranes. CHEST: Regular rate and rhythm, +S1, +S2 LUNGS: Clear to auscultation bilaterally. No wheezes, rales, or rhonchi. ABD: Round, soft, non-tender, non-distended. +Bowel sounds throughout. EXT: No lower extremity edema appreciated. SKIN: [place], dry, warm. No rashes. NEURO: Alert and oriented x 3. No focal deficits appreciated. BLE U/S 05/06/18 neg. Foot XR Degenerative change as described above. Electronically Signed by Jaziel Mortensen MD 05/05/2018 10:56 A Rt ankle XR Degenerative change, as described above. Electronically Signed by Jaziel Mortensen MD 05/05/2018 11:26 A A&P: Patient is an 88-year-old woman. She has medical history significant for coronary artery disease, congestive heart failure, diabetes, hypertension, hypercholesterolemia and A. fib on Xarelto. According to her, she was in her usual state of health until about sometime in the afternoon when she was preparing her dinner when she felt dizzy and had to grab onto furniture, sat down hoping the dizziness will chloe but 10 minutes later she still had the symptom of dizziness and subsequently activated EMS. Subsequently felt related to age with some degree of autonomic neuropathy in the presence of too well controlled blood pressures and mild intravascular volume depletion due to di uretics Debility. Mgmt as per ARU. PT/OT/ST as per ARU. Pain control as per ARU. Bowel care as per ARU. Disposition as per ARU. DVT px. Pt on Xarelto. Fall precautions. Dizziness, lightheadedness with posture change, though no orthostatic changes noted [place] due to age with some degree of autonomic neuropathy in the presence of too well controlled blood pressures and mild intravascular volume depletion due to diuretics. plan to allow higher blood pressures and less diuretics. Gabapentin dose decreased. No clinical signs of vestibular dysfunction or BPPV. Monitor. Presyncope probably due to too well controlled blood pressures for her age with mild intra vascular volume depletion from diuretics. Echo diastolic dysfunction only, normal EF no valvular abnormality telemetry monitoring unremarkable orthostatics were negative after IVF in ED. UTI urine culture e coli. ceftriaxone changed to po cefdinir. UC 05/05/18 pending. Atrial fibrillation rate controlled Atenolol with hold parameters Xarelto 20 mg daily. Diabetes Continue with consistent carb with no added salt diet. SSI Hypertension/HHD/DD Previously too well controlled for an elderly lady with occasional readings in 100s and 110s continue spironolactone atenolol with hold parameters Enalapril with hold parameters Lasix at reduced dosage. CKD stage 3 at baseline creatinine. avoid nephrotoxins, renally dose meds. SCr 1.22 Anemia. baseline appears to be 10-11. Fe studies, B12, folate 05/04/18. FOB pending. Monitor. History of MRSA postop hip replacement infection contact isolation Hypothyroid. Synthroid. HLD. Lipitor. Vital Signs Vital Signs Date Time Temp Pulse Resp B/P (MAP) Pulse Ox O2 Delivery O2 Flow Rate FiO2 05/06/18 08:56 150/60 05/06/18 06:20 97.8 73 16 94 Room Air Laboratory Data Labs 24H Laboratory Tests 2 05/05/18 16:56: Bedside Glucose (Misc Panel) 98 05/05/18 20:20: Bedside Glucose (Misc Panel) 171H 05/06/18 05:57: Bedside Glucose (Misc Panel) 141H 05/06/18 07:00: Immature Granulocyte % (Auto) 0.4, White Blood Count 5.4, Red Blood Count 3.35L, Hemoglobin 9.6L, Hematocrit 30.2L, Mean Corpuscular Volume 90.1, Mean Corpuscular Hemoglobin 28.7, Mean Corpuscular Hemoglobin Concent 31.8L, Red Cell Distribution Width 16.3H, Platelet Count 227, Neutrophils (%) (Auto) 49.1, Lymphocytes (%) (Auto) 34.4, Monocytes (%) (Auto) 7.8H, Eosinophils (%) (Auto) 7.4H, Basophils (%) (Auto) 0.9, Neutrophils # (Auto) 2.6, Lymphocytes # (Auto) 1.9, Monocytes # (Auto) 0.4, Eosinophils # (Auto) 0.4, Basophils # (Auto) 0.1, Nucleated Red Blood Cells % (auto) 0.0, Anion Gap 6L, Glomerular Filtration Rate 44.2, Blood Urea Nitrogen 40H, Creatinine 1.22, Sodium Level 142, Potassium Level 4.8, Chloride Level 110H, Carbon Dioxide Level 26, Calcium Level 8.9 05/06/18 11:22: Bedside Glucose (Misc Panel) 161H CBC/BMP Laboratory Tests 05/06/18 07:00 Red Blood Count 3.35 L, Mean Corpuscular Volume 90.1, Mean Corpuscular Hemoglobin 28.7, Mean Corpuscular Hemoglobin Concent 31.8 L, Red Cell Distribution Width 16.3 H, Neutrophils (%) (Auto) 49.1, Lymphocytes (%) (Auto) 34.4, Monocytes (%) (Auto) 7.8 H, Eosinophils (%) (Auto) 7.4 H, Basophils (%) (Auto) 0.9, Neutrophils # (Auto) 2.6, Lymphocytes # (Auto) 1.9, Monocytes # (Auto) 0.4, Eosinophils # (Auto) 0.4, Basophils # (Auto) 0.1, Calcium Level 8.9 Microbiology Microbiology 05/05/18 Urine Culture, Received Pending Home Medications Scheduled (Sandra-Bid Probiotic) 1 Tab Tab, 1 EA PO WM Atenolol (Atenolol) 50 Mg Tab, 50 MG PO DAILY Atorvastatin Calcium (Atorvastatin Calcium) 80 Mg Tab, 80 MG PO 2XWK TAKES ON WEDNESDAY AND WEDNESDAY Cefdinir (Cefdinir) 300 Mg Cap, 300 MG PO DAILY Esomeprazole Magnesium Trihydr (Nexium) 40 Mg Cap, 40 MG PO DAILY Furosemide (Furosemide) 40 Mg Tab, 40 MG PO DAILY take only in morning Gabapentin (Gabapentin) 300 Mg Cap, 300 MG PO QHS Levothyroxine Sodium (Synthroid) 75 Mcg Tab, 75 MCG PO DAILY Potassium Chloride (Klor-Con M10) 10 Meq Tabcr, 20 MEQ PO DAILY Rivaroxaban (Xarelto) 20 Mg Tab, 20 MG PO QHS Spironolactone (Spironolactone) 50 Mg Tab, 50 MG PO DAILY Allergies Coded Allergies: Iodine (Verified Allergy, Unknown, BLISTER & BLISTERS, 07/20/12) Povidone (Verified Allergy, Unknown, BLISTERS & BLISTERS, 07/20/12) Alena Austin May 06, 2018 12:03
[2018-05-06] MEDS: FUROSEMIDE 20 MG TAB PO SCH (13:05)
[2018-05-06 14:00] VITALS: BP 133/56
[2018-05-06] MEDS: ACETAMINOPHEN TAB 650MG DOSE (2X325MG) PO PRN (16:25)
[2018-05-06 20:00] VITALS: BP 126/58
[2018-05-06] MEDS: RIVAROXABAN 20 MG TAB (XARELTO) PO SCH (21:02)
[2018-05-06] MEDS: ACETAMINOPHEN TAB 650MG DOSE (2X325MG) PO SCH (21:02)
[2018-05-06] MEDS: GABAPENTIN 300 MG CAP PO SCH (21:02)
[2018-05-07 06:00] VITALS: BP 130/60
[2018-05-07] MEDS: LEVOTHYROXINE 75MCG TABLET (0.075MG) PO SCH (06:05)
[2018-05-07] MEDS: DOCUSATE SODIUM 100 MG CAP PO SCH ×2 (09:06→20:06)
[2018-05-07] MEDS: LACTOBACILLUS ACIDOPHILUS CAP (BACID) PO SCH ×3 (09:06→17:04)
[2018-05-07] MEDS: SPIRONOLACTONE 50 MG TAB PO SCH (09:06)
[2018-05-07] MEDS: CEFDINIR 300 MG CAP (OMNICEF) PO SCH (09:06)
[2018-05-07] MEDS: PANTOPRAZOLE 40MG TAB (PROTONIX) PO SCH (09:06)
[2018-05-07] MEDS: POTASSIUM CHLORIDE 10 MEQ SR TABLET PO SCH (09:06)
[2018-05-07] MEDS: ENALAPRIL MALEATE 5 MG TAB PO SCH (09:07)
[2018-05-07] MEDS: SODIUM CHLORIDE NASAL 0.65% SPRAY BTL (OCEAN) SCH ×3 (09:09→20:07)
[2018-05-07] MEDS: FLUTICASONE PROP 0.05% NASAL SPRAY 16 GM (FLONASE) NARES SCH (09:09)
[2018-05-07] MEDS: NYSTATIN CREAM 15 GM TOP SCH ×2 (09:09→20:08)
[2018-05-07] MEDS: FUROSEMIDE 20 MG TAB PO SCH (12:50)
[2018-05-07] MEDS: ATENOLOL 25 MG TAB PO SCH (12:53)
[2018-05-07 13:00] VITALS: BP 153/69
[2018-05-07] MEDS: ACETAMINOPHEN TAB 650MG DOSE (2X325MG) PO PRN (15:00)
--- NOTE | 2018-05-07 16:03 | IPNPDOC ---
PM&R Progress Note DATE OF SERVICE: May 06, 2018 [employer] Progress Note Subjective: Patient reports she no longer feels dizzy today. REVIEW OF SYSTEMS: The following is a completed review of systems and has been reviewed. Review of systems otherwise unremarkable. PAIN: Patient self reports no pain EYES: Negative for recent vision changes EARS, NOSE, & THROAT: +sinus pressure, otherwise no dysphagia rhinorrhea of throat pain CARDIOVASCULAR: denies chest pain, +CHF and Afib PULMONARY: Negative. Denies shortness of breath GASTROINTESTINAL: Negative for diarrhea/constipation GENITOURINARY: +UTI MUSCULOSKELETAL: bilateral leg swelling and right ankle pain NEUROLOGICAL: no focal deficits or seizures SKIN: no breakdown PSYCHIATRIC: Unremarkable All other review of systems found to be negative. PHYSICAL EXAMINATION: VITAL SIGNS: Please see below. GENERAL: Pleasant and cooperative. No acute distress. HEENT: PERRL. Extraocular movements intact. Clear conjunctiva CARDIOVASCULAR: Irregular rate and rhythm. No murmurs, rubs, or gallops LUNGS: Clear to auscultation bilaterally. No wheezes. No rhonchi ABDOMEN: Soft, nontender, nondistended. Positive bowel sounds. Normal active bowel sounds NEUROLOGICAL: Alert and oriented times three. Cranial nerves II through XII grossly intact. Sensation grossly intact EXTREMITIES: 5-/5 strength bilateral upper extremities. 5-\5 strength right lower extremity. 5-/5 strength in left lower extremity. +bilateral LE edema (+) TTP right lateral malleoli, +pain with varus strain on right pedal pulses intact, skin warm to touch and well perfused SKIN: intact ASSESSMENT:88-year-old F with past medical history of CAD, Afib who presents status post pre-syncopal episode found to have UTI admitted for debility. PLAN: 1. Rehab: PT/OT, assess for DME needs, ambulating with further with RW 2. Neuro: stable, admission CTH negative for acute stroke 3. CArdio: pmf Afib on XArelto, continue beta-luiza, diastolic CHF with LE edema, continue diuretics and tonja-wrap legs-monitor for dizziness and adjust medications accordingly- will change timing of Atenolol to 12 pm and decrease Enalapril dose to 2.5mg to avoid dizziness, patient denies vertigo -medicine consulted, recs appreciated 4. resp:incetive spirometry, stable 5. Endo: pmh hypothyroidism continue synthroid, DM continue ISS coverage 6. : E coli UTI on Cefdinir, monitor PVRs and, admission UA and Ucx positive for E. Faecalis, will re-order UA and cotninue Cefdinir for now 7. GI ppx: on Protonix 8. DVT ppx: on Xarelto dosed for Afib, Dopplers negative for DVT 9. Ortho: right lateral ankle pain, ankle and femoral X-ray negative for fracture, continue to tonja-wrap 9. Dispo: TBD Allergies Coded Allergies: Iodine (Verified Allergy, Unknown, BLISTER & BLISTERS, 07/20/12) Povidone (Verified Allergy, Unknown, BLISTERS & BLISTERS, 07/20/12) Vital Signs Vital Signs Date Time Temp Pulse Resp B/P (MAP) Pulse Ox O2 Delivery O2 Flow Rate FiO2 05/07/18 13:00 98.1 67 18 153/69 (97) 98 Room Air Laboratory Data Labs 24H Laboratory Tests 2 05/06/18 16:44: Bedside Glucose (Misc Panel) 181H 05/06/18 19:56: Bedside Glucose (Misc Panel) 169H 05/07/18 05:55: Bedside Glucose (Misc Panel) 125H Microbiology Microbiology 05/05/18 Urine Culture - Final, Complete Enterococcus Faecalis Current Medications Current Medications Current Medications Acetaminophen (Tylenol Tab) 650 mg Q4HP PRN PO fever/MILD PAIN (PS 1-4) Last administered on 05/07/18at 15:00; Start 05/04/18 at 16:30 Acetaminophen (Tylenol Tab) 650 mg QHS PO Last administered on 05/06/18at 21:02; Start 05/05/18 at 21:00 Atenolol (Tenormin) 25 mg DAILY PO Last administered on 05/05/18at 08:15; Start 05/05/18 at 09:00; Stop 05/05/18 at 13:02; Status DC Atenolol (Tenormin) 25 mg DAILY@1200 PO ; Start 05/06/18 at 12:00 Atorvastatin Calcium (Lipitor) 80 mg TuTh@0900 PO Last administered on 05/05/18at 08:15; Start 05/05/18 at 09:00 Cefdinir (Omnicef) 300 mg DAILY PO Last administered on 05/07/18at 09:06; Start 05/05/18 at 09:00; Stop 05/09/18 at 09:01 Dextrose (Dextrose 50%) 25 ml ASDIRECTED PRN IV SEE LABEL COMMENTS; Start 05/04/18 at 16:45 Docusate Sodium (Colace) 100 mg BID PO Last administered on 05/07/18at 09:06; Start 05/04/18 at 21:00 Enalapril Maleate (Vasotec) 2.5 mg DAILY PO Last administered on 05/07/18at 09:07; Start 05/06/18 at 09:00 Enalapril Maleate (Vasotec) 5 mg DAILY PO Last administered on 05/05/18at 08:15; Start 05/05/18 at 09:00; Stop 05/05/18 at 13:02; Status DC Fluticasone Propionate (Flonase 0.05% Nasal [place]) 2 spray DAILY NARES Last administered on 05/07/18at 09:09; Start 05/04/18 at 09:00 Furosemide (Lasix) 20 mg DAILY@1200 PO Last administered on 05/07/18at 12:50; Start 05/05/18 at 12:00 Gabapentin (Neurontin) 300 mg QHS PO Last administered on 05/06/18at 21:02; Start 05/04/18 at 21:00 Glucagon (Glucagon) 1 mg ASDIRECTED PRN SC SEE LABEL COMMENTS; Start 05/04/18 at 16:45 Glucose (Glucose) 16 GM ASDIRECTED PRN PO SEE LABEL COMMENTS; Start 05/04/18 at 16:45 Home Med (Med Rec Complete!) ASDIRECTED XX ; Start 05/04/18 at 18:00; Stop 05/04/18 at 18:00; Status DC Insulin Human Lispro (HumaLOG INSULIN) SEE PROTOCOL TABLE AC SC Last administered on 05/05/18at 12:00; Start 05/04/18 at 17:30; Stop 05/05/18 at 21:19; Status DC Lactobacillus Acidophilus (Bacid) 1 ea WM PO Last administered on 05/07/18at 12:50; Start 05/04/18 at 18:00 Levothyroxine Sodium (Synthroid) 75 mcg DAILY@06 PO Last administered on 05/07/18at 06:05; Start 05/05/18 at 06:00 Magnesium Hydroxide (Milk Of Magnesia) 30 ml DAILYPRN PRN PO CONSTIPATION; Start 05/04/18 at 16:30 Nystatin (Mycostatin) apply to leg crea... BID TOP Last administered on 05/07/18 09:09; Start 05/05/18 at 21:00 Pantoprazole Sodium (Protonix) 40 mg DAILY PO Last administered on 05/07/18 09:06; Start 05/04/18 at 09:00 Pantoprazole Sodium (Protonix) 40 mg DAILY PO ; Start 05/05/18 at 09:00; Stop 05/05/18 at 09:00; Status DC Potassium Chloride (Micro-K Extencaps) 20 meq DAILY PO Last administered on 05/07/18 09:06; Start 05/05/18 at 09:00 Rivaroxaban (Xarelto) 20 mg QHS PO Last administered on 05/06/18at 21:02; Start 05/04/18 at 21:00 Sodium Chloride ([place] Nasal [place]) 2 spray TID NA Last administered on 05/07/18 09:09; Start 05/04/18 at 21:00 Spironolactone (Aldactone) 50 mg DAILY PO Last administered on 05/07/18 09:06; Start 05/05/18 at 09:00 BULMARO CHO MD May 07, 2018 16:03
[2018-05-07 20:00] VITALS: BP 142/70
[2018-05-07] MEDS: RIVAROXABAN 20 MG TAB (XARELTO) PO SCH (20:06)
[2018-05-07] MEDS: GABAPENTIN 300 MG CAP PO SCH (20:06)
[2018-05-07] MEDS: ACETAMINOPHEN TAB 650MG DOSE (2X325MG) PO SCH (20:07)
[2018-05-08] MEDS: ACETAMINOPHEN TAB 650MG DOSE (2X325MG) PO PRN (00:44)
[2018-05-08] MEDS: LEVOTHYROXINE 75MCG TABLET (0.075MG) PO SCH (05:30)
[2018-05-08 06:00] VITALS: BP 152/68
[2018-05-08] MEDS: SPIRONOLACTONE 50 MG TAB PO SCH (09:55)
[2018-05-08] MEDS: PANTOPRAZOLE 40MG TAB (PROTONIX) PO SCH (09:55)
[2018-05-08] MEDS: POTASSIUM CHLORIDE 10 MEQ SR TABLET PO SCH (09:55)
[2018-05-08] MEDS: LACTOBACILLUS ACIDOPHILUS CAP (BACID) PO SCH ×3 (09:55→17:48)
[2018-05-08] MEDS: CEFDINIR 300 MG CAP (OMNICEF) PO SCH (09:55)
[2018-05-08] MEDS: DOCUSATE SODIUM 100 MG CAP PO SCH ×2 (09:55→20:23)
[2018-05-08] MEDS: ENALAPRIL MALEATE 5 MG TAB PO SCH (10:06)
[2018-05-08] MEDS: FLUTICASONE PROP 0.05% NASAL SPRAY 16 GM (FLONASE) NARES SCH (10:08)
[2018-05-08] MEDS: SODIUM CHLORIDE NASAL 0.65% SPRAY BTL (OCEAN) SCH ×3 (10:08→20:23)
[2018-05-08] MEDS: NYSTATIN CREAM 15 GM TOP SCH ×2 (10:09→20:23)
[2018-05-08] MEDS: FUROSEMIDE 20 MG TAB PO SCH (12:29)
[2018-05-08] MEDS: ATENOLOL 25 MG TAB PO SCH (12:30)
[2018-05-08 14:00] VITALS: BP 138/62
[2018-05-08] MEDS: RIVAROXABAN 20 MG TAB (XARELTO) PO SCH (20:22)
[2018-05-08] MEDS: GABAPENTIN 300 MG CAP PO SCH (20:22)
[2018-05-08] MEDS: ACETAMINOPHEN TAB 650MG DOSE (2X325MG) PO SCH (20:23)
[2018-05-08 22:00] VITALS: BP 133/89
[2018-05-09 06:00] VITALS: BP 119/57
[2018-05-09 06:08] LABS: BASO % 0.7 % (0.0-1.0); EOS # 0.4 10^3/uL (0.0-0.50); EOS % 7.6 % (0.0-3.0); HEMATOCRIT 26.3 % (36.0-47.0); HEMOGLOBIN 8.3 g/dl (12.0-15.5); LYMPH # 1.8 10^3/uL (1.5-4.5); LYMPH % 32.3 % (24.0-44.0); MEAN CORPUSCULAR HEMOGLOBIN 28.1 pg (27.0-33.0); MEAN CORPUSCULAR HGB CONC 31.6 g/dl (32.0-36.5); MEAN CORPUSCULAR VOLUME 89.2 fl (80.0-96.0); MONO # 0.5 10^3/uL (0.0-0.8); MONO % 9.4 % (0.0-5.0); NEUTROPHILS # 2.8 10^3/uL (1.8-7.7); NEUTROPHILS % 49.6 % (36.0-66.0); PLATELET COUNT, AUTOMATED 199 10^3/uL (150-450); RED BLOOD COUNT 2.95 10^6/uL (4.00-5.40); WHITE BLOOD COUNT 5.6 10^3/uL (4.0-10.0)
[2018-05-09] MEDS: LEVOTHYROXINE 75MCG TABLET (0.075MG) PO SCH (06:20)
[2018-05-09 06:35] LABS: CALCIUM LEVEL 8.6 MG/DL (8.8-10.2); CREATININE FOR GFR 1.18 MG/DL (0.55-1.30); GLOMERULAR FILTRATION RATE 45.9 (>32); POTASSIUM SERUM 5.2 MEQ/L (3.5-5.1)
[2018-05-09] MEDS: PANTOPRAZOLE 40MG TAB (PROTONIX) PO SCH (08:51)
[2018-05-09] MEDS: DOCUSATE SODIUM 100 MG CAP PO SCH ×2 (08:51→19:59)
[2018-05-09] MEDS: LACTOBACILLUS ACIDOPHILUS CAP (BACID) PO SCH ×3 (08:51→18:07)
[2018-05-09] MEDS: SPIRONOLACTONE 50 MG TAB PO SCH ×2 (08:52→08:55)
[2018-05-09] MEDS: ENALAPRIL MALEATE 5 MG TAB PO SCH (08:52)
[2018-05-09] MEDS: CEFDINIR 300 MG CAP (OMNICEF) PO SCH (08:53)
[2018-05-09] MEDS: POTASSIUM CHLORIDE 10 MEQ SR TABLET PO SCH (08:53)
[2018-05-09] MEDS: FLUTICASONE PROP 0.05% NASAL SPRAY 16 GM (FLONASE) NARES SCH (08:53)
[2018-05-09] MEDS: SODIUM CHLORIDE NASAL 0.65% SPRAY BTL (OCEAN) SCH ×3 (08:54→19:59)
[2018-05-09] MEDS: NYSTATIN CREAM 15 GM TOP SCH ×2 (08:54→19:59)
[2018-05-09] MEDS ORDERED: PATIROMER SORBITEX CALCIUM 8.4 GM POWDER PACKET (VELTASSA) PO SCH (12:00)
[2018-05-09] MEDS: ATENOLOL 25 MG TAB PO SCH (12:44)
[2018-05-09] MEDS: FUROSEMIDE 20 MG TAB PO SCH (12:44)
--- NOTE | 2018-05-09 13:15 | IPNPDOC ---
Date Seen The patient was seen on 05/09/18. Progress Note HPI: Patient is an 88-year-old woman. She has medical history significant for coronary artery disease, congestive heart failure, diabetes, hypertension, hypercholesterolemia and A. fib on Xarelto. According to her, she was in her usual state of health until about sometime in the afternoon when she was preparing her dinner when she felt dizzy and had to grab onto furniture, sat down hoping the dizziness will chloe but 10 minutes later she still had the symptom of dizziness and subsequently activated EMS. Subsequently felt related to age with some degree of autonomic neuropathy in the presence of too well controlled blood pressures and mild intravascular volume depletion due to diuretics. The pt was transferred to the care of ARU, Dr Friend, 05/04/18. No acute medical complaints today. OOB with PT. Denies any fevers, chills, weakness, fatigue, Headache, Chest Pain, Shortness of breath, cough, palpitations, abdominal pain, N/V/D or changes in bowel or bladder habits. PMHx: coronary artery disease, congestive heart failure, TTE 05/07 EF 75%, DD, Moderately severe mitral annular calcification without inflow tract obstruction and mild insufficiency DM hypertension, hypercholesterolemia A. fib on Xarelto PE: GEN: 88yoF, appears stated age. No acute distress. Alert and oriented x 3. Pleasant, interactive. HEENT: Normocephalic, atraumatic. Sclera are nonicteric. Conjunctiva without injection. Nose midline. Nasal turbinates without bogginess. No facial asymmetry. Moist mucous membranes. CHEST: Regular rate and rhythm, +S1, +S2 LUNGS: Clear to auscultation bilaterally. No wheezes, rales, or rhonchi. Breathing appears symmetric and easy. ABD: Round, soft, non-tender, non-distended. +Bowel sounds throughout. No rebound or guarding. No costovertebral angle tenderness. EXT: Pulses 2+ bilaterally dorsalis pedis and radial. No lower extremity edema appreciated. SKIN: [place], dry, warm. Capillary refill <2sec. No rashes. NEURO: Alert and oriented x 3. No focal deficits appreciated. A&P: Patient is an 88-year-old woman. She has medical history significant for coronary artery disease, congestive heart failure, diabetes, hypertension, h ypercholesterolemia and A. fib on Xarelto. According to her, she was in her usual state of health until about sometime in the afternoon when she was preparing her dinner when she felt dizzy and had to grab onto furniture, sat down hoping the dizziness will chloe but 10 minutes later she still had the symptom of dizziness and subsequently activated EMS. Subsequently felt related to age with some degree of autonomic neuropathy in the presence of too well controlled blood pressures and mild intravascular volume depletion due to diuretics Debility. Mgmt as per ARU. PT/OT/ST as per ARU. Pain control as per ARU. Bowel care as per ARU. Disposition as per ARU. DVT px. Pt on Xarelto. Fall precautions. Dizziness, lightheadedness with posture change, though no orthostatic changes noted [place] due to age with some degree of autonomic neuropathy in the presence of too well controlled blood pressures and mild intravascular volume depletion due to diuretics. plan to allow higher blood pressures and less diuretics. Gabapentin dose decreased. Aldactone dose decreased. No clinical signs of vestibular dysfunction or BPPV. Monitor. Presyncope probably due to too well controlled blood pressures for her age with mild intra vascular volume depletion from diuretics. Echo diastolic dysfunction only, normal EF no valvular abnormality telemetry monitoring unremarkable orthostatics were negative after IVF in ED. UTI urine culture e coli. completed po cefdinir. Atrial fibrillation rate controlled Atenolol with hold parameters Xarelto 20 mg daily. Diabetes Continue with consistent carb with no added salt diet. SSI FSBS 96-177 Hypertension/HHD/DD Previously too well controlled for an elderly lady with occasional readings in 100s and 110s spironolactone decreased to 25 mg daily. atenolol with hold parameters Enalapril with hold parameters Lasix at reduced dosage. CKD stage 3 at baseline creatinine. avoid nephrotoxins, renally dose meds. SCr 1.18 History of MRSA postop hip replacement infection contact isolation Hypothyroid. Synthroid. HLD. Lipitor. Anemia. Fe studies, B12, folate levels 05/04/18. FOB pending. hyperkalemia. 5.2 today. Hold po KCL supplement. Remains on low dose ACEI. Aldactone dose decreased. Veltassa added daily as per Dr Friend. BMP in AM. VS, I&O, 24H, Fishbone Vital Signs/I&O Vital Signs Date Time Temp Pulse Resp B/P (MAP) Pulse Ox O2 Delivery O2 Flow Rate FiO2 05/09/18 12:44 61 121/59 05/09/18 06:00 98.3 20 97 Room Air I&O- Last 24 Hours up to 6 AM 05/09/18 06:00 Intake Total 600 ml Output Total 600 ml Balance 0 ml Laboratory Data 24H LABS Laboratory Tests 2 05/08/18 17:17: Bedside Glucose (Misc Panel) 131H 05/09/18 05:42: Immature Granulocyte % (Auto) 0.4, White Blood Count 5.6, Red Blood Count 2.95L, Hemoglobin 8.3L, Hematocrit 26.3L, Mean Corpuscular Volume 89.2, Mean Corpuscular Hemoglobin 28.1, Mean Corpuscular Hemoglobin Concent 31.6L, Red Cell Distribution Width 16.0H, Platelet Count 199, Neutrophils (%) (Auto) 49.6, Lymphocytes (%) (Auto) 32.3, Monocytes (%) (Auto) 9.4H, Eosinophils (%) (Auto) 7.6H, Basophils (%) (Auto) 0.7, Neutrophils # (Auto) 2.8, Lymphocytes # (Auto) 1.8, Monocytes # (Auto) 0.5, Eosinophils # (Auto) 0.4, Basophils # (Auto) 0.0, Nucleated Red Blood Cells % (auto) 0.0, Anion Gap 7L, Glomerular Filtration Rate 45.9, Blood Urea Nitrogen 31H, Creatinine 1.18, Sodium Level 141, Potassium Level 5.2H, Chloride Level 109H, Carbon Dioxide Level 25, Calcium Level 8.6L CBC/BMP Laboratory Tests 05/09/18 05:42 Red Blood Count 2.95 L, Mean Corpuscular Volume 89.2, Mean Corpuscular Hemoglobin 28.1, Mean Corpuscular Hemoglobin Concent 31.6 L, Red Cell Distribution Width 16.0 H, Neutrophils (%) (Auto) 49.6, Lymphocytes (%) (Auto) 32.3, Monocytes (%) (Auto) 9.4 H, Eosinophils (%) (Auto) 7.6 H, Basophils (%) (Auto) 0.7, Neutrophils # (Auto) 2.8, Lymphocytes # (Auto) 1.8, Monocytes # (Auto) 0.5, Eosinophils # (Auto) 0.4, Basophils # (Auto) 0.0, Calcium Level 8.6 L Microbiology Microbiology 05/05/18 Urine Culture - Final, Complete Enterococcus Faecalis Alena Austin May 09, 2018 13:15
[2018-05-09 14:00] VITALS: BP 147/65
--- NOTE | 2018-05-09 19:43 | IPNPDOC ---
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 REVIEW OF SYSTEMS: The following is a completed review of systems and has been reviewed. Review of systems otherwise unremarkable. PAIN: Patient self reports no pain EYES: Negative for recent vision changes EARS, NOSE, & THROAT: +sinus pressure, otherwise no dysphagia rhinorrhea of throat pain CARDIOVASCULAR: denies chest pain, +CHF and Afib PULMONARY: Negative. Denies shortness of breath GASTROINTESTINAL: Negative for diarrhea/constipation GENITOURINARY: +UTI MUSCULOSKELETAL: bilateral leg swelling and right ankle pain NEUROLOGICAL: no focal deficits or seizures SKIN: no breakdown PSYCHIATRIC: Unremarkable All other review of systems found to be negative. PHYSICAL EXAMINATION: VITAL SIGNS: Please see below. GENERAL: Pleasant and cooperative. No acute distress. HEENT: PERRL. Extraocular movements intact. Clear conjunctiva CARDIOVASCULAR: Irregular rate and rhythm. No murmurs, rubs, or gallops LUNGS: Clear to auscultation bilaterally. No wheezes. No rhonchi ABDOMEN: Soft, nontender, nondistended. Positive bowel sounds. Normal active bowel sounds NEUROLOGICAL: Alert and oriented times three. Cranial nerves II through XII grossly intact. Sensation grossly intact EXTREMITIES: 5-/5 strength bilateral upper extremities. 5-\5 strength right lower extremity. 5-/5 strength in left lower extremity. +bilateral LE edema (+) TTP right lateral malleoli, +pain with varus strain on right pedal pulses intact, skin warm to touch and well perfused SKIN: intact ASSESSMENT:88-year-old F with past medical history of CAD, Afib who presents status post pre-syncopal episode found to have UTI admitted for debility. PLAN: 1. Rehab: PT/OT, assess for DME needs, ambulating with further with RW 2. Neuro: stable, admission CTH negative for acute stroke 3. CArdio: pmf Afib on XArelto, continue beta-luiza, diastolic CHF with LE edema, continue diuretics and tonja-wrap legs-monitor for dizziness and adjust medications accordingly- will change timing of Atenolol to 12 pm and decrease Enalapril dose to 2.5mg to avoid dizziness, patient denies vertigo-improving -medicine consulted, recs appreciated 4. resp:incetive spirometry, stable 5. Endo: pmh hypothyroidism continue synthroid, DM well controlled with diet 6. : E coli UTI on Cefdinir, monitor PVRs and, admission UA and Ucx positive for E. Faecalis, will re-order UA and continue Cefdinir for now 7. GI ppx: on Protonix 8. DVT ppx: on Xarelto dosed for Afib, Dopplers negative for DVT 9. Ortho: right lateral ankle pain, ankle and femoral X-ray negative for fracture, continue to tonja-wrap- will set up Lymphedema clinic 10. Heme: drop in Hgb, stool for occult blood pending 9. Dispo: 05/17/18, progressing towards goals Allergies Coded Allergies: Iodine (Verified Allergy, Unknown, BLISTER & BLISTERS, 07/20/12) Povidone (Verified Allergy, Unknown, BLISTERS & BLISTERS, 07/20/12) Vital Signs Vital Signs Date Time Temp Pulse Resp B/P (MAP) Pulse Ox O2 Delivery O2 Flow Rate FiO2 05/09/18 14:00 97.7 63 20 147/65 (92) 96 05/09/18 06:00 Room Air Laboratory Data CBC/BMP Laboratory Tests 05/09/18 05:42 Red Blood Count 2.95 L, Mean Corpuscular Volume 89.2, Mean Corpuscular Hemoglobin 28.1, Mean Corpuscular Hemoglobin Concent 31.6 L, Red Cell Distribution Width 16.0 H, Neutrophils (%) (Auto) 49.6, Lymphocytes (%) (Auto) 32.3, Monocytes (%) (Auto) 9.4 H, Eosinophils (%) (Auto) 7.6 H, Basophils (%) (Auto) 0.7, Neutrophils # (Auto) 2.8, Lymphocytes # (Auto) 1.8, Monocytes # (Auto) 0.5, Eosinophils # (Auto) 0.4, Basophils # (Auto) 0.0, Calcium Level 8.6 L Labs 24H Laboratory Tests 2 05/09/18 05:42: Immature Granulocyte % (Auto) 0.4, White Blood Count 5.6, Red Blood Count 2.95L, Hemoglobin 8.3L, Hematocrit 26.3L, Mean Corpuscular Volume 89.2, Mean Corpuscular Hemoglobin 28.1, Mean Corpuscular Hemoglobin Concent 31.6L, Red Cell Distribution Width 16.0H, Platelet Count 199, Neutrophils (%) (Auto) 49.6, Lymphocytes (%) (Auto) 32.3, Monocytes (%) (Auto) 9.4H, Eosinophils (%) (Auto) 7.6H, Basophils (%) (Auto) 0.7, Neutrophils # (Auto) 2.8, Lymphocytes # (Auto) 1.8, Monocytes # (Auto) 0.5, Eosinophils # (Auto) 0.4, Basophils # (Auto) 0.0, Nucleated Red Blood Cells % (auto) 0.0, Anion Gap 7L, Glomerular Filtration Rate 45.9, Blood Urea Nitrogen 31H, Creatinine 1.18, Sodium Level 141, Potassium Level 5.2H, Chloride Level 109H, Carbon Dioxide Level 25, Calcium Level 8.6L 05/09/18 17:27: Bedside Glucose (Misc Panel) 148H Microbiology Microbiology 05/05/18 Urine Culture - Final, Complete Enterococcus Faecalis Current Medications Current Medications Current Medications Acetaminophen (Tylenol Tab) 650 mg Q4HP PRN PO fever/MILD PAIN (PS 1-4) Last administered on 05/08/18at 00:44; Start 05/04/18 at 16:30 Acetaminophen (Tylenol Tab) 650 mg QHS PO Last administered on 05/08/18at 20:23; Start 05/05/18 at 21:00 Atenolol (Tenormin) 25 mg DAILY PO Last administered on 05/05/18at 08:15; Start 05/05/18 at 09:00; Stop 05/05/18 at 13:02; Status DC Atenolol (Tenormin) 25 mg DAILY@1200 PO Last administered on 05/09/18at 12:44; Start 05/06/18 at 12:00 Atorvastatin Calcium (Lipitor) 80 mg TuTh@0900 PO Last administered on 05/05/18at 08:15; Start 05/05/18 at 09:00 Cefdinir (Omnicef) 300 mg DAILY PO Last administered on 05/09/18at 08:53; Start 05/05/18 at 09:00; Stop 05/09/18 at 09:01; Status DC Dextrose (Dextrose 50%) 25 ml ASDIRECTED PRN IV SEE LABEL COMMENTS; Start 05/04/18 at 16:45 Docusate Sodium (Colace) 100 mg BID PO Last administered on 05/09/18at 08:51; Start 05/04/18 at 21:00 Enalapril Maleate (Vasotec) 2.5 mg DAILY PO Last administered on 05/09/18at 08:52; Start 05/06/18 at 09:00 Enalapril Maleate (Vasotec) 5 mg DAILY PO Last administered on 05/05/18at 08:15; Start 05/05/18 at 09:00; Stop 05/05/18 at 13:02; Status DC Fluticasone Propionate (Flonase 0.05% Nasal [place]) 2 spray DAILY NARES Last administered on 05/09/18at 08:53; Start 05/04/18 at 09:00 Furosemide (Lasix) 20 mg DAILY@1200 PO Last administered on 05/09/18at 12:44; Start 05/05/18 at 12:00 Gabapentin (Neurontin) 300 mg QHS PO Last administered on 05/08/18at 20:22; Start 05/04/18 at 21:00 Glucagon (Glucagon) 1 mg ASDIRECTED PRN SC SEE LABEL COMMENTS; Start 05/04/18 at 16:45 Glucose (Glucose) 16 GM ASDIRECTED PRN PO SEE LABEL COMMENTS; Start 05/04/18 at 16:45 Home Med (Med Rec Complete!) ASDIRECTED XX ; Start 05/04/18 at 18:00; Stop 05/04/18 at 18:00; Status DC Insulin Human Lispro (HumaLOG INSULIN) SEE PROTOCOL TABLE AC SC Last administered on 05/05/18at 12:00; Start 05/04/18 at 17:30; Stop 05/05/18 at 21:19; Status DC Lactobacillus Acidophilus (Bacid) 1 ea WM PO Last administered on 05/09/18at 18:07; Start 05/04/18 at 18:00 Levothyroxine Sodium (Synthroid) 75 mcg DAILY@06 PO Last administered on 05/09/18at 06:20; Start 05/05/18 at 06:00 Magnesium Hydroxide (Milk Of Magnesia) 30 ml DAILYPRN PRN PO CONSTIPATION; Start 05/04/18 at 16:30 Nystatin (Mycostatin) apply to leg crea... BID TOP Last administered on 05/09/18 08:54; Start 05/05/18 at 21:00 Pantoprazole Sodium (Protonix) 40 mg DAILY PO Last administered on 05/09/18at 08:51; Start 05/04/18 at 09:00 Pantoprazole Sodium (Protonix) 40 mg DAILY PO ; Start 05/05/18 at 09:00; Stop at 09:00; Status DC Patiromer (Veltassa) 8.4 gm DAILY@1200 PO Last administered on 05/09/18at 12:44; Start 05/09/18 at 12:00 Potassium Chloride (Micro-K Extencaps) 20 meq DAILY PO Last administered on 05/08/18 09:55; Start 05/05/18 at 09:00; Stop 05/09/18 at 09:35; Status DC Rivaroxaban (Xarelto) 20 mg QHS PO Last administered on 05/08/18at 20:22; Start 05/04/18 at 21:00 Sodium Chloride ([place] Nasal [place]) 2 spray TID NA Last administered on 05/09/18at 08:54; Start 05/04/18 at 21:00 Spironolactone (Aldactone) 25 mg DAILY PO ; Start 05/10/18 at 09:00 Spironolactone (Aldactone) 50 mg DAILY PO Last administered on 05/08/18at 09:55; Start 05/05/18 at 09:00; Stop 05/09/18 at 10:45; Status DC BULMARO CHO MD May 09, 2018 19:43
[2018-05-09] MEDS: GABAPENTIN 300 MG CAP PO SCH (19:59)
[2018-05-09] MEDS: RIVAROXABAN 20 MG TAB (XARELTO) PO SCH (19:59)
[2018-05-09] MEDS: ACETAMINOPHEN TAB 650MG DOSE (2X325MG) PO SCH (20:00)
[2018-05-09 20:30] VITALS: BP 141/70
[2018-05-10] MEDS: ACETAMINOPHEN TAB 650MG DOSE (2X325MG) PO PRN (03:36)
[2018-05-10] MEDS: LEVOTHYROXINE 75MCG TABLET (0.075MG) PO SCH (05:18)
[2018-05-10 05:54] VITALS: BP 137/64
[2018-05-10 07:14] LABS: CALCIUM LEVEL 8.5 MG/DL (8.8-10.2); CREATININE FOR GFR 1.08 MG/DL (0.55-1.30); GLOMERULAR FILTRATION RATE 50.9 (>32); POTASSIUM SERUM 4.9 MEQ/L (3.5-5.1)
[2018-05-10] MEDS ORDERED: SPIRONOLACTONE 25 MG TAB PO SCH (09:00)
[2018-05-10] MEDS: DOCUSATE SODIUM 100 MG CAP PO SCH ×2 (10:01→20:15)
[2018-05-10] MEDS: PANTOPRAZOLE 40MG TAB (PROTONIX) PO SCH (10:01)
[2018-05-10] MEDS: ENALAPRIL MALEATE 5 MG TAB PO SCH (10:02)
[2018-05-10] MEDS: LACTOBACILLUS ACIDOPHILUS CAP (BACID) PO SCH ×3 (10:02→18:04)
[2018-05-10] MEDS: NYSTATIN CREAM 15 GM TOP SCH ×2 (10:03→20:15)
[2018-05-10] MEDS: FLUTICASONE PROP 0.05% NASAL SPRAY 16 GM (FLONASE) NARES SCH (10:03)
[2018-05-10] MEDS: ATORVASTATIN 20 MG TAB PO SCH (10:03)
[2018-05-10] MEDS: SODIUM CHLORIDE NASAL 0.65% SPRAY BTL (OCEAN) SCH ×3 (10:04→20:15)
[2018-05-10] MEDS: ATENOLOL 25 MG TAB PO SCH (12:14)
[2018-05-10] MEDS: FUROSEMIDE 20 MG TAB PO SCH (12:15)
[2018-05-10 14:00] VITALS: BP 114/57
--- NOTE | 2018-05-10 19:01 | IPNPDOC ---
PM&R Progress Note DATE OF SERVICE: May 10, 2018 Cardiac Monitor Progress Note Subjective: Patient reports she is no longer dizzy, can get in and out of bed safely and eager for room privileges. REVIEW OF SYSTEMS: The following is a completed review of systems and has been reviewed. Review of systems otherwise unremarkable. PAIN: Patient self reports no pain EYES: Negative for recent vision changes EARS, NOSE, & THROAT: +sinus pressure, otherwise no dysphagia rhinorrhea of throat pain CARDIOVASCULAR: denies chest pain, +CHF and Afib PULMONARY: Negative. Denies shortness of breath GASTROINTESTINAL: Negative for diarrhea/constipation GENITOURINARY: +UTI MUSCULOSKELETAL: bilateral leg swelling and right ankle pain NEUROLOGICAL: no focal deficits or seizures SKIN: no breakdown PSYCHIATRIC: Unremarkable All other review of systems found to be negative. PHYSICAL EXAMINATION: VITAL SIGNS: Please see below. GENERAL: Pleasant and cooperative. No acute distress. HEENT: PERRL. Extraocular movements intact. Clear conjunctiva CARDIOVASCULAR: Irregular rate and rhythm. No murmurs, rubs, or gallops LUNGS: Clear to auscultation bilaterally. No wheezes. No rhonchi ABDOMEN: Soft, nontender, nondistended. Positive bowel sounds. Normal active bowel sounds NEUROLOGICAL: Alert and oriented times three. Cranial nerves II through XII grossly intact. Sensation grossly intact EXTREMITIES: 5-/5 strength bilateral upper extremities. 5-\5 strength right lower extremity. 5-/5 strength in left lower extremity. +bilateral LE edema (-) TTP right lateral malleoli, (-)pain with varus strain on right pedal pulses intact, skin warm to touch and well perfused SKIN: intact ASSESSMENT:88-year-old F with past medical history of CAD, Afib who presents status post pre-syncopal episode found to have UTI admitted for debility. PLAN: 1. Rehab: PT/OT, assess for DME needs, room privileges, Mod-I 2. Neuro: stable, admission CTH negative for acute stroke 3. CArdio: pmf Afib on XArelto, continue beta-luiza, diastolic CHF with LE edema, continue diuretics and tonja-wrap legs-monitor for dizziness and adjust medications accordingly- will change timing of Atenolol to 12 pm and decrease Enalapril dose to 2.5mg to avoid dizziness, patient denies vertigo-improving -medicine consulted, recs appreciated 4. resp: incetive spirometry, stable 5. Endo: pmh hypothyroidism continue synthroid, DM well controlled with diet 6. : E coli UTI on Cefdinir, monitor PVRs and, admission UA and Ucx positive for E. Faecalis, repeat UA negative 7. GI ppx: on Protonix 8. DVT ppx: on Xarelto dosed for Afib, Dopplers negative for DVT 9. Ortho: right lateral ankle pain, ankle and femoral X-ray negative for fracture, continue to tonja-wrap- will set up Lymphedema clinic once finished with home services 10. Heme: drop in Hgb, stool for occult blood negative 9. Dispo: 05/17/18, progressing towards goals Allergies Coded Allergies: Iodine (Verified Allergy, Unknown, BLISTER & BLISTERS, 07/20/12) Povidone (Verified Allergy, Unknown, BLISTERS & BLISTERS, 07/20/12) Vital Signs Vital Signs Date Time Temp Pulse Resp B/P (MAP) Pulse Ox O2 Delivery O2 Flow Rate FiO2 05/10/18 14:00 97.1 63 21 114/57 (76) 96 Room Air Laboratory Data CBC/BMP Laboratory Tests 05/10/18 06:35 Calcium Level 8.5 L Labs 24H Laboratory Tests 2 05/10/18 06:35: Anion Gap 8, Glomerular Filtration Rate 50.9, Blood Urea Nitrogen 33H, Creatinine 1.08, Sodium Level 142, Potassium Level 4.9, Chloride Level 109H, Carbon Dioxide Level 25, Calcium Level 8.5L 05/10/18 16:57: Bedside Glucose (Misc Panel) 160H Microbiology Microbiology 05/10/18 Stool Occult Blood (RINA) - Final, Complete 05/05/18 Urine Culture - Final, Complete Enterococcus Faecalis Current Medications Current Medications Current Medications Acetaminophen (Tylenol Tab) 650 mg Q4HP PRN PO fever/MILD PAIN (PS 1-4) Last administered on 05/10/18at 03:36; Start 05/04/18 at 16:30 Acetaminophen (Tylenol Tab) 650 mg QHS PO Last administered on 05/09/18at 20:00; Start 05/05/18 at 21:00 Atenolol (Tenormin) 25 mg DAILY PO Last administered on 05/05/18at 08:15; Start 05/05/18 at 09:00; Stop 05/05/18 at 13:02; Status DC Atenolol (Tenormin) 25 mg DAILY@1200 PO Last administered on 05/10/18at 12:14; Start 05/06/18 at 12:00 Atorvastatin Calcium (Lipitor) 80 mg TuTh@0900 PO Last administered on 05/10/18at 10:03; Start 05/05/18 at 09:00 Cefdinir (Omnicef) 300 mg DAILY PO Last administered on 05/09/18at 08:53; Start 05/05/18 at 09:00; Stop 05/09/18 at 09:01; Status DC Dextrose (Dextrose 50%) 25 ml ASDIRECTED PRN IV SEE LABEL COMMENTS; Start 05/04/18 at 16:45 Docusate Sodium (Colace) 100 mg BID PO Last administered on 05/10/18at 10:01; Start 05/04/18 at 21:00 Enalapril Maleate (Vasotec) 2.5 mg DAILY PO Last administered on 05/10/18at 10:02; Start 05/06/18 at 09:00 Enalapril Maleate (Vasotec) 5 mg DAILY PO Last administered on 05/05/18at 08:15; Start 05/05/18 at 09:00; Stop 05/05/18 at 13:02; Status DC Ferrous Gluconate (Fergon) 324 mg BID PO ; Start 05/10/18 at 21:00 Fluticasone Propionate (Flonase 0.05% Nasal [place]) 2 spray DAILY NARES Last administered on 05/10/18at 10:03; Start 05/04/18 at 09:00 Furosemide (Lasix) 20 mg DAILY@1200 PO Last administered on 05/10/18at 12:15; Start 05/05/18 at 12:00 Gabapentin (Neurontin) 300 mg QHS PO Last administered on 05/09/18at 19:59; Start 05/04/18 at 21:00 Glucagon (Glucagon) 1 mg ASDIRECTED PRN SC SEE LABEL COMMENTS; Start 05/04/18 at 16:45 Glucose (Glucose) 16 GM ASDIRECTED PRN PO SEE LABEL COMMENTS; Start 05/04/18 at 16:45 Home Med (Med Rec Complete!) ASDIRECTED XX ; Start 05/04/18 at 18:00; Stop 05/04/18 at 18:00; Status DC Insulin Human Lispro (HumaLOG INSULIN) SEE PROTOCOL TABLE AC SC Last administered on 05/05/18at 12:00; Start 05/04/18 at 17:30; Stop 05/05/18 at 21:19; Status DC Lactobacillus Acidophilus (Bacid) 1 ea WM PO Last administered on 05/10/18at 18:04; Start 05/04/18 at 18:00 Levothyroxine Sodium (Synthroid) 75 mcg DAILY@06 PO Last administered on 05/10/18at 05:18; Start 05/05/18 at 06:00 Magnesium Hydroxide (Milk Of Magnesia) 30 ml DAILYPRN PRN PO CONSTIPATION; Start 05/04/18 at 16:30 Nystatin (Mycostatin) apply to leg crea... BID TOP Last administered on 05/10/18at 10:03; Start 05/05/18 at 21:00 Pantoprazole Sodium (Protonix) 40 mg DAILY PO Last administered on 05/10/18at 10:01; Start 05/04/18 at 09:00 Pantoprazole Sodium (Protonix) 40 mg DAILY PO ; Start 05/05/18 at 09:00; Stop 05/05/18 at 09:00; Status DC Patiromer (Veltassa) 8.4 gm DAILY@1200 PO Last administered on 05/09/18at 12:44; Start 05/09/18 at 12:00; Stop 05/10/18 at 10:47; Status DC Potassium Chloride (Micro-K Extencaps) 20 meq DAILY PO Last administered on 05/08/18at 09:55; Start 05/05/18 at 09:00; Stop 05/09/18 at 09:35; Status DC Rivaroxaban (Xarelto) 20 mg QHS PO Last administered on 05/09/18at 19:59; Start 05/04/18 at 21:00 Sodium Chloride ([place] Nasal [place]) 2 spray TID NA Last administered on 05/10/18at 10:04; Start 05/04/18 at 21:00 Spironolactone (Aldactone) 25 mg DAILY PO Last administered on 05/10/18at 10:02; Start 05/10/18 at 09:00; Stop 05/10/18 at 10:48; Status DC Spironolactone (Aldactone) 50 mg DAILY PO Last administered on 05/08/18at 09:55; Start 05/05/18 at 09:00; Stop 05/09/18 at 10:45; Status DC Spironolactone (Aldactone) 50 mg DAILY PO ; Start 05/11/18 at 09:00 BULMARO CHO MD May 10, 2018 19:01
[2018-05-10 20:00] VITALS: BP 120/59
[2018-05-10] MEDS: FERROUS GLUCONATE 324 MG TAB PO SCH (20:15)
[2018-05-10] MEDS: GABAPENTIN 300 MG CAP PO SCH (20:15)
[2018-05-10] MEDS: RIVAROXABAN 20 MG TAB (XARELTO) PO SCH (20:15)
[2018-05-10] MEDS: ACETAMINOPHEN TAB 650MG DOSE (2X325MG) PO SCH (21:24)
[2018-05-11] MEDS: LEVOTHYROXINE 75MCG TABLET (0.075MG) PO SCH (05:16)
[2018-05-11 06:00] VITALS: BP 129/60
[2018-05-11 06:48] LABS: CALCIUM LEVEL 8.7 MG/DL (8.8-10.2); CREATININE FOR GFR 1.14 MG/DL (0.55-1.30); GLOMERULAR FILTRATION RATE 47.8 (>32); POTASSIUM SERUM 4.6 MEQ/L (3.5-5.1)
[2018-05-11] MEDS: FERROUS GLUCONATE 324 MG TAB PO SCH ×2 (08:40→22:51)
[2018-05-11] MEDS: DOCUSATE SODIUM 100 MG CAP PO SCH ×2 (08:40→22:51)
[2018-05-11] MEDS: LACTOBACILLUS ACIDOPHILUS CAP (BACID) PO SCH ×3 (08:41→17:54)
[2018-05-11] MEDS: NYSTATIN CREAM 15 GM TOP SCH ×2 (08:41→22:52)
[2018-05-11] MEDS: SPIRONOLACTONE 25 MG TAB PO SCH (08:41)
[2018-05-11] MEDS: PANTOPRAZOLE 40MG TAB (PROTONIX) PO SCH (08:41)
[2018-05-11] MEDS: SODIUM CHLORIDE NASAL 0.65% SPRAY BTL (OCEAN) SCH ×3 (08:41→22:53)
[2018-05-11] MEDS: FLUTICASONE PROP 0.05% NASAL SPRAY 16 GM (FLONASE) NARES SCH (08:42)
[2018-05-11] MEDS: ENALAPRIL MALEATE 5 MG TAB PO SCH (08:45)
[2018-05-11 12:25] VITALS: BP 127/60
[2018-05-11] MEDS: ATENOLOL 25 MG TAB PO SCH (12:29)
[2018-05-11] MEDS: FUROSEMIDE 20 MG TAB PO SCH (12:29)
[2018-05-11] MEDS: ACETAMINOPHEN TAB 650MG DOSE (2X325MG) PO PRN (13:23)
[2018-05-11 22:00] VITALS: BP 124/57
[2018-05-11] MEDS: GABAPENTIN 300 MG CAP PO SCH (22:51)
[2018-05-11] MEDS: ACETAMINOPHEN TAB 650MG DOSE (2X325MG) PO SCH (22:51)
[2018-05-11] MEDS: RIVAROXABAN 20 MG TAB (XARELTO) PO SCH (22:52)
[2018-05-12 06:00] VITALS: BP 130/78
[2018-05-12] MEDS: LEVOTHYROXINE 75MCG TABLET (0.075MG) PO SCH (06:08)
[2018-05-12 07:12] LABS: CALCIUM LEVEL 8.8 MG/DL (8.8-10.2); CREATININE FOR GFR 1.09 MG/DL (0.55-1.30); GLOMERULAR FILTRATION RATE 50.3 (>32); POTASSIUM SERUM 4.3 MEQ/L (3.5-5.1)
[2018-05-12] MEDS: SPIRONOLACTONE 25 MG TAB PO SCH (09:00)
[2018-05-12] MEDS: FERROUS GLUCONATE 324 MG TAB PO SCH (09:03)
[2018-05-12] MEDS: DOCUSATE SODIUM 100 MG CAP PO SCH (09:03)
[2018-05-12] MEDS: PANTOPRAZOLE 40MG TAB (PROTONIX) PO SCH (09:03)
[2018-05-12] MEDS: ATORVASTATIN 20 MG TAB PO SCH (09:04)
[2018-05-12] MEDS: LACTOBACILLUS ACIDOPHILUS CAP (BACID) PO SCH (09:04)
[2018-05-12 09:05] VITALS: BP 119/58
[2018-05-12] MEDS: FLUTICASONE PROP 0.05% NASAL SPRAY 16 GM (FLONASE) NARES SCH (09:05)
[2018-05-12] MEDS: SODIUM CHLORIDE NASAL 0.65% SPRAY BTL (OCEAN) SCH (09:05)
[2018-05-12] MEDS: ENALAPRIL MALEATE 5 MG TAB PO SCH (09:05)
[2018-05-12] MEDS: NYSTATIN CREAM 15 GM TOP SCH (09:06)
[2018-05-12] MEDS ORDERED: ATEN25TA PO (11:20)
[2018-05-12] MEDS ORDERED: LEVO75TA4 PO (11:20)
[2018-05-12] MEDS ORDERED: ENAL5TAB PO (11:20)
[2018-05-12] MEDS ORDERED: ALDA25TA2 PO (11:20)
[2018-05-12] MEDS ORDERED: ATOR80TA59 PO (11:20)
[2018-05-12] MEDS ORDERED: FERR32TA PO (11:20)
[2018-05-12] MEDS ORDERED: FURO20TA2 PO (11:20)
[2018-05-12] MEDS ORDERED: XARE20TA PO (11:20)
[2018-05-12] MEDS ORDERED: GABA-843 PO (11:20)
--- NOTE | 2018-05-23 15:13 | PMRDS ---
DATE OF ADMISSION: 05/04/2018 DATE OF DISCHARGE: 05/12/2018 CHIEF COMPLAINT/DISCHARGE DIAGNOSIS: Debility secondary to presyncope with urinary tract infection. HISTORY OF PRESENT ILLNESS: 88-year-old female with a past medical history of CAD, diastolic congestive heart failure, hypertension, diabetes, and atrial fibrillation on Xarelto who had an episode of dizziness and near syncope while at home. She denied having chest pain, shortness of breath, or loss of consciousness at the time and was brought to [facility] emergency department on 05/01/2018 where she was found negative for acute stroke showing "there is parenchymal volume loss. White matter changes are demonstrated in the subcortical, centrum semi-ovale and periventricular white matter consistent with small vessel white matter angiopathic gliosis". She was evaluated by cardiology who performed an echo which revealed "mildly dilated left atrium with Doppler evidence of impairment of LV diastolic function and at last mildly elevated mean left atrial pressure...mildly dilated right heart chambers with normal right ventricular free wall". She was given IVF for her dizziness and urinalysis and culture grew E. Coli for which she was started on oral antibiotics. She was found to have significant weakness and difficulty with ambulation and activities of daily living and deemed medically appropriate for discharge to ARU on 05/04/2018. PAST MEDICAL HISTORY: CAD, diastolic congestive heart failure, hypertension, diabetes, and atrial fibrillation on Xarelto. HOSPITAL COURSE: Patient was admitted and on a comprehensive physical therapy occupational therapy program. She received 24-hour nursing supervision and weekly team meetings were held to discuss her progress. For her history of atrial fibrillation she was continued on Xarelto and beta blockers however her blood pressure medication doses were adjusted to avoid dizziness. She was continued on diuretics for her lower extremity lymphedema which was chronic in nature and was provided with daily MARGE wrapping. She was encouraged to use incentive spirometry and had no signs of any respiratory infections during her hospital course. She was maintained on Synthroid for her hypothyroidism and diabetic medication was withheld with good fingersticks, diabetes controlled with diet during her hospital course. She was found to have an E. Coli urinary tract infection and during her initial hospital stay. Repeat urine culture on admission showed faecalis. She was continued on Cefdinir and followup urinalysis was later negative. She originally complained of right lateral ankle pain for which an ankle x-ray was ordered showing no fracture and was relieved with MARGE wrapping. She was found to have a drop in her hemoglobin during her hospital course. Occult blood was negative and her hemoglobin stabilized. She was deemed medically appropriate to return to home on 05/12/2018. DISCHARGE MEDICATIONS: Atenolol, enalapril, iron, furosemide, spironolactone, atorvastatin, gabapentin, Synthroid, probiotics, Xarelto. FUNCTIONAL HISTORY UPON DISCHARGE: Patient was independent with a rolling walker and able to ambulate 100 feet times two using a four wheeled rolling walker. She was given room privileges and overall performed overall and was modified independent with her dressing, grooming, toileting and was provided with home services for lymphedema management.
== END 2018-05-12 12:05 | disposition home health service (06) | DRG 92 ==
LOC: M PM&R 14:43
PROVIDERS: ADMIT Physical Medicine & Rehabilitation; ATTEND Physical Medicine & Rehabilitation
DX: R26.89 Other abnormalities of gait and mobility (principal); I50.32 Chronic diastolic (congestive) heart failure; I13.0 Hypertensive heart and chronic kidney disease with heart failure and stage 1 through stage 4 chronic kidney disease, or unspecified chronic kidney disease; N39.0 Urinary tract infection, site not specified; M62.81 Muscle weakness (generalized); E11.9 Type 2 diabetes mellitus without complications; I48.91 Unspecified atrial fibrillation; B96.29 Other Escherichia coli [E. coli] as the cause of diseases classified elsewhere; Z79.899 Other long term (current) drug therapy; Z88.8 Allergy status to other drugs, medicaments and biological substances; N18.3 Chronic kidney disease, stage 3 (moderate); E03.9 Hypothyroidism, unspecified; R53.81 Other malaise; I25.10 Atherosclerotic heart disease of native coronary artery without angina pectoris; Z79.01 Long term (current) use of anticoagulants; E78.00 Pure hypercholesterolemia, unspecified; E87.5 Hyperkalemia; D64.9 Anemia, unspecified

== ENCOUNTER 2018-07-13 10:00 | Outpatient (RCR) | payer MEDICARE, OTHER ==
[~2018-07-13 10:00] MED LIST changes: +ALDA25TA2 PO; +ATEN25TA PO; +FERR32TA PO; +FURO20TA2 PO
== END 2018-07-17 ==
LOC: M PT 10:00
PROVIDERS: ATTEND Family Medicine
DX: I89.0 Lymphedema, not elsewhere classified (principal)

== ENCOUNTER 2018-08-12 10:00 | Outpatient (RCR) | payer MEDICARE, OTHER | END 2018-08-16 | LOC: M PT 10:00 | PROVIDERS: ATTEND Family Medicine | DX: I89.0 Lymphedema, not elsewhere classified (principal) ==

== ENCOUNTER 2018-08-19 09:54 | Outpatient (RCR) | payer MEDICARE, OTHER | END 2018-09-16 | LOC: M PT 09:54 | PROVIDERS: ATTEND Family Medicine | DX: I89.0 Lymphedema, not elsewhere classified (principal) ==

== ENCOUNTER → 2018-08-29 | Outpatient (REF) | payer MEDICARE, OTHER | LOC: M LAB REF 17:26 | PROVIDERS: ATTEND Physician Assistant | DX: N30.00 Acute cystitis without hematuria (principal) ==

== ENCOUNTER → 2018-09-03 | Outpatient (REF) | payer MEDICARE, OTHER | LOC: M LAB REF 18:52 | PROVIDERS: ATTEND Physician Assistant | DX: N76.4 Abscess of vulva (principal) ==